=== PATIENT | male | born 1970 | race Caucasian/White ===

== ENCOUNTER 2024-12-06 18:19 | Inpatient (IN) | payer BC, SELFPAY ==
[2024-12-06] VITALS (12 sets, daily range): BP systolic 149–187; BP diastolic 87–111; PULSE 78–88; RESP 16; TEMP 36.4–37.9; O2SAT 93–100; BMI 30.3; BMI 30.4
--- NOTE | 2024-12-06 16:22 | PRE.ANES_ITS ---
ASA Classification* ASA Classification ASA Classification: 2 and E Assessment & Plan Anesthesia* Anesthesia Assessment Anesthesia Assessment: Discussed sedation and/or anesthesia options, risks, benefits, and alternatives with patient/parents/legal guardian/POA. Questions invited. The patient/parents/legal guardian/POA seems to understand and agrees to proceed with anesthesia plan. Reviewed the physical assessment, medical history, allergy history and patient home medications list prior to surgery/procedure/anesthetic and documented any changes. Performed airway and anesthesia risk assessments. Anesthesia Type Anesthesia Type: General History Source History Obtained from:: Patient and Chart Anesthesia Focused Assessment* Temperature: 99.9 F Pulse Rate: 88 Blood Pressure: 161/93 Respiratory Rate: 16 Pulse Ox: 100 Oxygen Delivery Method: Room Air Airway Assessment Mouth opens: >3 cm Mallampati Score: I Teeth Condition: Chipped/Broken (Patient has a few chipped teeth. Rest are tight.) Neck Range of motion (ROM): Limited ROM (Slight decrease in extension.) Focused Labs Anesthesia Preop lab: CBC CHEMISTRY COAG Pre-Assessment Diagnosis/Proposed Procedure Planned Operative Procedure(s): Right shoulder arthroscopy, irrigation and debridement. 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 When Was Last Pacemaker Check QUESTION #4 FULL TEXT: You/Your Family Experience fever (hyperthermia) with Anesthesia Last Oral Intake Last Oral intake: Last Oral Intake NPO since 12:00 12/06/24 15:56 Meds taken in AM with sips of Yes 12/06/24 15:56 water? Meds patient instructed to take am of surgery Any additional information?: Yes NPO since: 11:30 (Patient had food at 11:30 AM.) Meds taken in AM with sips of water?: Yes Meds patient instructed to take am of surgery: Patient took orphenadrine, alleve, and Toradol. PONV PONV - lunch counter manager: PONV - lunch counter manager Female No 12/06/24 16:00 HX of Motion Sickness No 12/06/24 16:00 HX of N/V After Surgery No 12/06/24 16:00 Non-Smoker Yes 12/06/24 16:00 Duration of Surgery greater Yes 12/06/24 16:00 than 60 minutes Number of Risk Factors 2 12/06/24 16:00 PONV Score Moderate Risk 12/06/24 16:00 Height & Weight Height & Weight: Anesthesia: Height & Weight Height 5 ft 6 in 12/06/24 15:56 Weight: 85.275 kg 12/06/24 15:56 Body Mass Index (BMI) 30.3 12/06/24 15:56 Respiratory Assessment Respiratory Assessment - lunch counter manager: Respiratory Tract Infection Hx - lunch counter manager Hx Respiratory Tract Infection No 12/06/24 16:00 STOP Sleep Apnea STOP Sleep Apnea - lunch counter manager: STOP Sleep Apnea - lunch counter manager Hx Hypertension No 12/06/24 16:00 Hx Sleep Apnea No 12/06/24 16:00 CPAP BIPAP Do you snore loudly (louder No 12/06/24 16:00 than talking or can be heard Do you often feel tired/ No 12/06/24 16:00 fatigued/ sleepy during daytime? Has anyone observed you stop No 12/06/24 16:00 breathing during sleep? STOP Results Negative 12/06/24 16:00 QUESTION #5 FULL TEXT : Do you snore loudly (louder than talking or can be heard through closed doors)? Tobacco Use History Tobacco Use History - lunch counter manager: Tobacco Use History - lunch counter manager Tobacco Use Smoking Status Never smoker 12/06/24 16:00 Hx Tobacco Use No 12/06/24 16:00 Years Smoking Packs Smoked per Day Smoking Cessation Date was within the last 15 years Hx Smoking Cessation Date Hx Smoking Cessation Counseling Hematologic Medial History Hematologic Hx - lunch counter manager: Hematologic Medical Hx - metal hanger Hx of Blood Transfusion No 12/06/24 16:00 Hx of Transfusion in last 3 No 12/06/24 16:00 Months Date of Last Transfusion (if within last 3 months) Ever experience any problems No 12/06/24 16:00 with transfusion(s)? Specify any problems Hx of Preganancy in last 3 N/A 12/06/24 16:00 Months Nurse Filling Out Transfusion NBUCHER 12/06/24 16:00 & Questions: Date: 12/06/24 12/06/24 16:00 Time: 16:00 12/06/24 16:00 Patient unable to answer at this time (ie. confused, unrespo /Reproduction History /Reproductive History - lunch counter manager: /Reproductive Hx- lunch counter manager Hx Now No 12/06/24 16:00 Gestational Age (in weeks): EDC: Hx Hx Para Hx Section SAB No 12/06/24 16:00 Active Medications Active Medications: Current Medications Generic Name Dose Route Start Last Admin Trade Name Freq PRN Reason Stop Dose Admin Sodium Chloride 1,000 mls @ 15 mls/hr 12/06/24 15:55 IV 12/12/24 05:14 [facility] Protocol PFSH Medical History Septic joint of right shoulder region Right shoulder pain Home Medications ?Medication ?Instructions ?Recorded ?Last Taken ?Type ketorolac 10 mg tablet 10 mg PO Q6 PRN pain 12/06/24 12/06/24 13:00 History methylprednisolone 4 mg tablets in mg PO 12/06/24 12/05/24 History a dose pack orphenadrine citrate 100 mg 100 mg PO BID 12/06/24 12/06/24 History tablet,extended release Allergy/AdvReac Type Severity Reaction Status Date / Time Penicillins AdvReac Other Verified 12/06/24 15:55 Family History Other Cancer Surgical History History of colonoscopy Social History Smoking Status: Never smoker alcohol intake: never Review of Systems (Anesthesia) ROS Narrative System reviewed and no additional complaints, except as documented.
--- NOTE | 2024-12-06 16:26 | PCM.HP.STD ---
HPI - General HPI Narrative JONATHAN SABA is a 54 M who presents for right shoulder arthroscopy, I and D for acute septic joint. no changes to health. pending bloodwook. RAB, post op discussed. Right shoulder marked, consent signed. OK to proceed. MR#: [id number] Acct: [id number] Name: JONATHAN SABA Rep #: [id number] : 1970 Provider: Dr. aFdy Farias MD Age/Sex: 54/M [place] [facility] [place] Status: Signed with Addenda ADDENDUM by Beatriz Casas on 12/06/24 at 1524 Office Procedure Documentation entered by Beatriz Casas 12/06/24 15:24: Office Injections/Aspirations Procedure Detail Procedure performed by: Fady Farias Ortho Injection Site: Yes Medication Given: Yes Ortho Injections/Aspirations Yes Subacromial Injection Right Details: Obtained consent for aspiration. Under sterile conditions, aspirated 20 cc of cloudy murky fluid from the patients right shoulder. The patient tolerated the aspiration well without any noted complications. Patient should call our office if redness develops, pain worsens or if they have any concerns. Date cc: ~* Signed Intake Vital Signs 12/06/2513:29 Height 5 ft 6 in Weight: 193 lb 4 oz BMI 31.1 Intake Visit Reasons: RIGHT SHOULDER Chief Complaint: Right Shoulder Pain Accompanied by: Is patient in pain?: Yes Pain scale (1-10): 10 Allergies Penicillins Adverse Reaction (Verified 12/06/24 14:31) Other Medications ?Medication ?Instructions ?Recorded ?Confirmed ?Type ketorolac 10 mg tablet 10 mg PO Q6 PRN 12/06/24 12/06/24 History methylprednisolone 4 mg tablets in mg PO 12/06/24 12/06/24 History a dose pack orphenadrine citrate 100 mg 100 mg PO BID PRN 12/06/24 12/06/24 History tablet,extended release PFSH Medical History (Updated 12/06/24 @ 15:07 by Fady Farias MD) Septic joint of right shoulder region Right shoulder pain Family History Other Cancer Social History Smoking Status: Never smoker alcohol intake: never HPI RIGHT SHOULDER Details: This documentation accurately reflects the service provided and the decisions made by me, Dr. Fady Farias MD 12/06/24 0470. Part of today?s visit was documented by [ ], acting as scribe. JONATHAN SABA is a 54 year old M here today for R shoulder pain. 8 years of shoulder pain. worse with lifting some fire wood recently. feels swollen and has tingling and numbness, hard to sleep. here with his . RHD. no prior operations. 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 no pop. had an MRI that showed a 'severed tendon' 5 years ago. 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 [place] - on prednisone. on 5mg yesterday and a muscle relaxant and toradol. in the ED in [place] on friday. Supplemental Info R shoulder xr 3 view - 12/05/24 on pacs moderate ACJ arthrosis, no GH OA, sclerosis at GT, nil acute. Coding Level of Care Code Attention Gastroenterology Nurse Diagnoses Right shoulder pain M25.511 Septic joint of right shoulder region M00.9 Comment 54866 and cpt aspirate major joint Assessment and Plan Assessment and Plan (1) Right shoulder pain: Status: Acute Plan: JONATHAN SABA is a 54 year old M here today for R shoulder pain. The pain has been getting worse and worse over the last 4 days with toxic appearing patient temperature 99 with red and warm and hot right shoulder with pain with any sort of micromotion I am extremely concerned here for spontaneous [place] septic joint of the right shoulder. I explained my concern to the patient and his . He has been having rigors as well and is extremely painful up to a 10 out of 10 with deep shoulder pain. The next step would be an acute aspiration of the shoulder I explained the pros and cons risk benefits of that and consented the patient for an urgent right shoulder aspiration. I did the aspiration and this revealed 20 cc of cloudy murky joint fluid that appears to be a bacterial infection. I sent this off for Gram stain culture and sensitivities protein glucose and cell counts stat. I asked the patient to go down to the emergency department acutely, he will need blood work, broad spec antibiotics, and STAT I and D surgical intervention. The patient has been n.p.o. a few sips of water last few hours but nothing to eat or drink since 11 AM this morning. Asked the patient to remain n.p.o. for a stat emergency right shoulder irrigation and debridement. He understands he urgency and necessity of the situation no further questions or concerns. Pros and cons risks and benefits of a right shoulder aspiration were discussed. Patient wished to proceed. Risks include but not limited to infection, pain, stiffness, damage to other structures, neurovascular injury, wear further tear of the tendon and other structures such as the skin, bleeding, allergic reaction, acute flare reaction and other risks. Obtained informed consent for injection. Anterior aspect of the shoulder anterior to the ACJ was prepped with chlorhexidine solution allowed to thoroughly dry over 3 minutes. Did pre procedure timeout. Used Gebauer spray per bottle instructions. Using sterile technique, injected 5cc 0.25% bupivacaine, gave it 5 minutes to set in. Aspirated 20cc murky fluid with a 18g needle. sent in multiple bottles. The patient tolerated the injection well without any noted complication. Bandage placed. (2) Septic joint of right shoulder region: Status: Acute Orders: Orders Shoulder min 2 Views Today M25.511 - Pain in right shoulder Culture, Body Fluid Today M25.511 - Pain in right shoulder Crystals, Body Fluid Today M25.511 - Pain in right shoulder Synovial Fluid RBC, WBC & Diff Today M25.511 - Pain in right shoulder GLUCOSE, SYNOVIAL FLUID Today M25.511 - Pain in right shoulder PROTEIN, SYNOVIAL FLUID Today M25.511 - Pain in right shoulder Gram Stain Today M25.511 - Pain in right shoulder Ortho Exam General General: No no acute distress (looks unwell, temp 99) and Yes distressed Neurologic: Yes alert Psychologic: Yes reasonable and appropriate Right Shoulder Skin/Wound: Yes CDI, Yes ecchymosis, Yes erythema and Yes swelling SHOULDER: Shoulder is quite warm no pain with range of motion of the elbow but any sort of even micromotion of the shoulder causes the patient extreme pain and duress. The shoulder is warm slightly red hand is swollen but neurovascularly intact median radial ulnar nerves as well as AIN/PIN hand is warm and well-perfused strong radial pulse but the hand is swollen slightly globally diminished sensation to the upper extremity. [facility] Medical History Septic joint of right shoulder region Right shoulder pain Home Medications ?Medication ?Instructions ?Recorded ?Last Taken ?Type ketorolac 10 mg tablet 10 mg PO Q6 PRN pain 12/06/24 12/05/24 13:00 History methylprednisolone 4 mg tablets in mg PO 12/06/24 12/05/24 History a dose pack orphenadrine citrate 100 mg 100 mg PO BID 12/06/24 12/05/24 History tablet,extended release Allergy/AdvReac Type Severity Reaction Status Date / Time Penicillins AdvReac Other Verified 12/06/24 15:55 Family History Other Cancer Surgical History (Updated 12/06/24 @ 16:01 by Mirela Maher) History of colonoscopy Social History (Updated 12/06/24 @ 14:33 by Veronica Marino) Smoking Status: Never smoker alcohol intake: never Vital Signs Vital Signs Vital Signs: 12/06/24 15:56 12/06/24 15:56 Temperature 99.9 F H Temperature Source Temporal Pulse Rate 88 Respiratory Rate 16 Respiratory Pattern Normal Blood Pressure 161/93 H Blood Pressure Mean 115 Blood Pressure Source Monitor Blood Pressure Position Semi-Fowlers Blood Pressure Location Left Arm Pulse Ox 100 Oxygen Delivery Method Room Air Weight Weight: 188 lb Body Mass Index (BMI) 30.3
[2024-12-06] MEDS: Epinephrine (1 mg/ml) 1 MG/ML VIAL (17:00)
--- NOTE | 2024-12-06 17:09 | PN.HOSP_ITS ---
Subjective Subjective Patient notes recent history of longstanding issues with his right shoulder with recommended surgical intervention but he deferred for many years but over the last week he started to have more significant pain to the right shoulder with debility, severe sharp stabbing and dull aching pain 10 out of 10 with low-grade temperatures prompting ED evaluation in [place] on Friday where he was started on steroids and muscle relaxants as well as Toradol but did not improve with referral to orthopedic surgery prompting evaluation on day of presentation in the office with Dr. Farias with right shoulder aspiration at that point with resulting labs concerning for septic joint prompting transition to the ED for planned operative intervention. Currently patient is prepping for transition to the OR and notes ongoing 10 out of 10 pain to the right shoulder at rest, worse with any activity and movement. He denies any recent specific trauma, abrasion or injury to the right shoulder. His last dose of steroids was the day prior. Patient denies chills, nausea, emesis, abdominal pain, chest pain or dyspnea. Objective Data Objective Data Vital Signs: Vital Signs Temp Pulse Resp BP Pulse Ox O2 Del Method 99.9 F H 88 16 161/93 H 100 Room Air 12/06/24 16:35 12/06/24 16:35 12/06/24 16:35 12/06/24 16:35 12/06/24 16:35 12/06/24 16:35 Oxygen Delivery Method Room Air Weight: 188 lb Body Mass Index (BMI) 30.3 Lab / Micro Data 12/06/24 16:40 12/06/24 16:40 Physical Exam Narrative Physical Examination: General: Awake, alert, oriented x 3 and cooperative, laying in the preop bed, uncomfortable appearing. Skin: Normal color, normal turgor, no icterus, no cyanosis with dressing in place over aspiration site to the right shoulder with no drainage. HEENT: AT/NC, EOMI, PERRLA, mildly dry MM. Lungs: CTA bilaterally, moderate effort, mild decrease BL bases, no rales, ronchi or wheezing. Heart: Regular rate and rhythm; no gallop, rub audible. Abdomen: Soft, NTTP, ND, normal BS. Extremities: No cyanosis, clubbing, or edema, significant discomfort with any attempt to move the right shoulder, peripheral pulses intact. Neurological: Patient awake, alert, oriented as noted cognitive function intact; pupils equally reactive to light and accommodation, cranial nerves gross normal, moving all 4 extremities although limited right upper extremity/shoulder movement given severity of pain, strength accordingly moderately to severely globally decreased. Psychiatric: Affect appears uncomfortable, no acute evidence of depressive or anxiety feelings. Assessment & Plan Assessment/Plan (1) Septic joint of right shoulder region: PLAN: Plan The patient is a 54 y/o M w/ PMHx: Chronic R shoulder debility/pain/OA, Obesity otherwise healthy who presents to the [facility] on 12/06/2024 for planned right shoulder operative debridement for concern for septic shoulder with history of worsening pain over the weekend and debility with follow-up with orthopedic surgery with aspiration performed and concern for septic joint. #1. Right shoulder septic joint with acute on chronic right shoulder debility/pain: Admitted per Dr. Farias, planned right shoulder arthroscopy with debridement and I&D, will await wound cultures, infectious disease consulted, discussed with orthopedic surgery and recommended IV vancomycin and IV cefepime x 1 in the OR and will continue these agents pending infectious disease evaluation and alteration of regimen per their discretion, post- operative pain management, bowel regimen, DVT Prophylaxis, PT/OT/CM per Orthopedic surgery discretion. #2. Elevated BP without hypertensive diagnosis: Significantly elevated BP, possibly related with pain, will continue to monitor and add regimen if appropriate, in the interim as needed IV hydralazine. #3. Obesity: Weight loss and lifestyle changes encouraged. #4. DVT prophylaxis: SCDs versus chemoprophylaxis per surgery discretion given recent OR. Charges/Coding Visit Charges Inpatient E&M: 95908 Subs Hosp L3
[2024-12-06 17:22] LABS: ALB/GLOB Ratio 0.8 RATIO (0.9-2.4); AST(SGOT) 14 U/L (15-37); Alanine Aminotransfer ALT/SGPT 22 U/L (16-61); Albumin, Serum 3.4 g/dL (3.2-5.0); Alkaline Phosphatase 69 U/L (45-117); Anion Gap 6 (5-15); BUN 14 mg/dL (7-18); BUN/Creat Ratio 13.1 RATIO (10-20); Calcium,Total 8.8 mg/dL (8.5-10.1); Chloride 104 mmol/L (98-107); Creatinine, Serum 1.07 mg/dL (0.70-1.30); EST Glomerular Filtration Rate 76 mL/min (>60); Est Glom Filt Rate - Afr Amer 92 mL/min (>60); Estimated Creatinine Clearance 79.87 ml/min; Globulin 4.4 g/dL (2.2-4.2); Glucose 106 mg/dL (74-106); Protein, Total 7.8 g/dL (6.4-8.2); Sodium Level 135 mmol/L (136-145)
[2024-12-06 17:27] LABS: Absolute Lymphocyte Count 1.06 X10^3/uL (0.83-4.51); Absolute Neutrophil Count 12.5 X10^3/uL (2.0-7.7); Basophil# 0.04 X10^3/uL; Basophil% 0.3 % (0-1); Eosinophil# 0.01 X10^3/uL; Eosinophils% 0.1 % (0-5); Erythrocyte Sedimentation Rate 48 mm/hr (0-20); Hemoglobin 14.1 g/dL (13.0-16.5); Lymphocyte # 1.06 X10^3/ul (0.83-4.51); Mean Corp Hgb Conc 33.6 g/dL (32-36); Mean Corpuscular Hgb 27.6 pg (27.0-32.0); Mean Corpuscular Volume 82.2 fL (80-94); Mean Platelet Vol. 11.1 fl (6.2-12.0); Monocyte# 1.48 X10^3/uL; Monocyte% 9.7 % (0-10); NRBC Flagged by Analyzer 0 % (0-5); Neutrophil # 12.53 X10^3/uL (2.7-7.7); Neutrophil % 82.4 % (47-70); Platelet Count 239 K/mm3 (150-450); RBC Distribution Width CV 13.6 % (11.6-14.6); RBC Distribution Width SD 40.7 fl (35.1-43.9); Red Blood Count 5.11 M/mm3 (4.6-6.2); White Blood Count 15.2 K/mm3 (4.4-11.0)
[2024-12-06] MEDS: Vancomycin HCl 2,000 MG in 0.9% Normal Saline (500mL Bag) 500 ML 250 MG IV (17:43)
[2024-12-06] MEDS: Cefepime HCl 2 GM in 0.9% Normal Saline (100mL MB+) 100 ML IV ×2 (17:43→22:57)
[2024-12-06] MEDS: Bupivacaine 0.25% 30 ML Vial (17:54)
[2024-12-06 17:55] LABS: Pathologist Comment May follow
--- NOTE | 2024-12-06 18:08 | OP.PCM_ITS ---
Problems Associated Problem List Diagnoses (1) Septic joint of right shoulder region: (2) Right shoulder pain: Procedures Musculoskeletal 20xxx-29xxx: Other Procedure See Report Operative Report (Standard) Operative Information Date of Procedure: 12/06/24 Pre-Operative Diagnosis: R septic shoulder joint Post-Operative Diagnosis: same Surgery/Procedure Performed: Right shoulder arthroscopy, extensive debridement, I and D film crew member: Erick Plate Conditioner: avtar Tasks completed by video production assistant: Retracting Type of Anesthesia: General RN Documented Start/Stop Times: Operation Date: 12/06/24 17:00 Case Time Into Pre-Op 12/06/24 15:51 Anesthesia Start 12/06/24 17:16 Into Room 12/06/24 17:16 Out of Pre-Op 12/06/24 17:17 Procedure Start 12/06/24 17:41 Procedure End 12/06/24 18:11 Into Recovery 12/06/24 18:17 Procedure Start Time: 17:41 Procedure Stop Time: 18:11 Select all DRAINS/GRAFTS/IMPLANTS that apply: None Estimated Blood Loss: 50 Specimen collected: No Description of surgery: Patient brought to the operating room theater. Administered general anesthetic. IV antibiotics administered cefepime and vancomycin. Patient transferred right side up lateral decubitus beanbag positioner axillary roll placed. All bony prominences padded. SCDs on the legs. Upper extremity prepped and draped in the usual sterile fashion with chlorhexidine-based prep solution allowing over 3 minutes drying time prior to draping. 10 pounds of inline traction with the arm in 40 degrees of abduction was used. Preoperative timeout performed from the site patient and the surgery. Began by inserting the arthroscope into the intra-articular portion of the shoulder through a standard posterior arthroscopy portal. Used a standard anterior arthroscopy portal inside out spinal needle localization just posterior to the biceps tendon. There was extensive synovitis and upon immediately putting in the scope into the shoulder there was murky joint fluid. I performed an extensive debridement throughout the shoulder rotator interval axillary recess as well as a subacromial bursa completely removed that. I also established a lateral based portal accessory portal for working as well. There is a large full-thickness rotator cuff tear with retraction to the level of the glenoid. I debrided any nonviable tissue. There is again extensive synovitis throughout the shoulder that I debrided. Biceps tendon was subluxed. There is some grade 2 changes of the cartilage on the humeral head and grade 1 changes on the glenoid. There is loose cartilage fragments which I debrided I thoroughly irrigated the joint using 6 L of normal saline. Arthroscopy pictures taken and saved throughout the case onto the system. Case terminated wound thoroughly irrigated. Portal sites closed with 3-0 Monocryl suture left open the anterior portal. Steri-Strips Adaptic as well as 5 cc of quarter percent bupivacaine was instilled in around the portal sites. ABD dressing cloth tape with a sling for the upper extremity was then placed. Patient woken up from the general anesthetic transferred off the operating table taken to postanesthetic care unit in stable condition. All sponge needle instrument counts were correct no complications Plan to the patient admitted to the hospital continue IV antibiotics I did call Dr. Andrade (infectious disease) at 4:30 PM stat but never got back to me ...I was able to consult with the hospitalist with regards to the choice of IV antibiotics. We will do broad-spectrum IV antibiotics until the cultures are back this can take 3 to 5 days as well as following the blood work CBC and CRP to monitor the response to the antibiotics. Daily dressing changes and will follow the patient while in hospital. cpt 15004 Surgical Findings: septic joint, infection and synovitis, bursitis Complications Complications: No Admit VTE Documentation VTE Present on Admission: No VTE Mechan Device Prophylaxis: SCD's VTE Pharm Prophylaxis ordered?: No Reason prophylaxis not ordered: Treatment Not Indicated
--- NOTE | 2024-12-06 18:19 | PCM.POST.ANE ---
Anesthesia: Postop Eval I Current Vital Signs Temperature: 99.2 F Pulse Rate: 88 Blood Pressure: 161/102 Respiratory Rate: 16 Pulse Ox: 96 Oxygen Delivery Method: Room Air Assessment Airway patent: Yes Spontaneous unlabored respirations: Yes Mental status: Awake and Calm nausea: No Vomiting: No Anesthesia Complication: No Fluid Hydration Crystalloid volume administer (ml): 1,000 Total IV fluid infused: 1,000 Progress Note Anesthesia document: Postop Eval 1 completed: Yes
--- NOTE | 2024-12-06 18:20 | POSTOPAN2_ITS ---
Anesthesia Postop Eval I Sum Postop Eval Completion status Anesthesia document: Postop Eval 1 completed: Yes Anesthesia Postop Eval I Summary Anesthesia Postop Eval I Summary: Anesthesia Postop Eval I: Assessment Summary Airway patent Yes 12/06/24 18:20 RN [email or web address] Spontaneous unlabored Yes 12/06/24 18:20 RN [email or web address].MDOT respirations Mental status Awake,Calm 12/06/24 18:20 RN [email or web address].MDOT nausea No 12/06/24 18:20 RN [email or web address].MDOT Vomiting No 12/06/24 18:20 RN [email or web address].MDOT Anesthesia Postop Eval I: Fluid Summary Crystalloid volume administer 1,000 12/06/24 18:20 RN [email or web address].MDOT (ml) Colloids volume administered ( ml) Blood Product volume administered (ml) Total IV fluid infused 1,000 12/06/24 18:20 RN [email or web address].MDOT Anesthesia Postop Eval I: Summary Notes Anesthesia Complication No 12/06/24 18:20 RN [email or web address].MDOT Anesthesia Complication Comment: Post-operative progress note Anesthesia: Postop Eval II Evaluation Mental status: Awake and Calm Pain Level: 3 nausea: No Vomiting: No Complications Anesthesia Complication: No
--- NOTE | 2024-12-06 18:20 | PCM.POSTANE2 ---
Anesthesia Postop Eval I Sum Postop Eval Completion status Anesthesia document: Postop Eval 1 completed: Yes Anesthesia Postop Eval I Summary Anesthesia Postop Eval I Summary: Anesthesia Postop Eval I: Assessment Summary Airway patent Yes 12/06/24 18:20 CHEMIST INORGANIC.MDOT Spontaneous unlabored Yes 12/06/24 18:20 CHEMIST INORGANIC.MDOT respirations Mental status Awake,Calm 12/06/24 18:20 CHEMIST INORGANIC.MDOT nausea No 12/06/24 18:20 CHEMIST INORGANIC.MDOT Vomiting No 12/06/24 18:20 CHEMIST INORGANIC.MDOT Anesthesia Postop Eval I: Fluid Summary Crystalloid volume administer 1,000 12/06/24 18:20 CHEMIST INORGANIC.MDOT (ml) Colloids volume administered ( ml) Blood Product volume administered (ml) Total IV fluid infused 1,000 12/06/24 18:20 CHEMIST INORGANIC.MDOT Anesthesia Postop Eval I: Summary Notes Anesthesia Complication No 12/06/24 18:20 CHEMIST INORGANIC.MDOT Anesthesia Complication Comment: Post-operative progress note Anesthesia: Postop Eval II Evaluation Mental status: Awake and Calm Pain Level: 3 nausea: No Vomiting: No Complications Anesthesia Complication: No
--- NOTE | 2024-12-06 20:56 | PHA.PHARE_ITS ---
Consult Antibiotic Management Pharmacy has been consulted to manage selected antibiotic: Vancomycin Type of Intervention Type of Consult: New start Suspected Infection Suspected Infection: Other (infected shoulder) Labs Labs: Sodium 135 mmol/L (136-145) L 12/06/24 16:40 Potassium 4.0 mmol/L (3.5-5.1) 12/06/24 16:40 Chloride 104 mmol/L (98-107) 12/06/24 16:40 Carbon Dioxide 25.0 mmol/L (21.0-32.0) 12/06/24 16:40 Anion Gap 6 (5-15) 12/06/24 16:40 BUN 14 mg/dL (7-18) 12/06/24 16:40 Creatinine 1.07 mg/dL (0.70-1.30) 12/06/24 16:40 Est GFR (MDRD) Af Amer 92 mL/min (>60) 12/06/24 16:40 Est GFR (MDRD) Non-Af 76 mL/min (>60) 12/06/24 16:40 BUN/Creatinine Ratio 13.1 RATIO (10-20) 12/06/24 16:40 Glucose 106 mg/dL (74-106) 12/06/24 16:40 Microbiology Microbiology: Microbiology 12/06/24 17:55 Aspirate - Shoulder Gram Stain - Preliminary Dosing Weight Weight used for dosin.4 kg Estimated Creatinine Clearance Estimated Creatinine Clearance: 80ml/min Goal Trough Goal Trough: 15-20 mcg/mL Pharmacy Plan for Drug Dosing Pharmacy Plan for Drug Dosing: NEW START IV VANCOMYCIN Consulting Physician: Dr. Carranza Indication: Infected shoulder Goal Trough: 15-20 SrCr: 1.07 CrCl: 80ml/min Comments: pt received a 2000mg loading dose on 12/06/24 at 1743 Vancomycin Dose: based on patients weight and renal function, recommend an i nitial dose of 1000mg q12h. Trough prior to the 4th total dose Note: dose was calculated using clinical pharmacology dosing calculator Pending Level: 12/08/24 at 0430 Pharmacy Service will continue to monitor and adjust dosing as required. Follow-Up Labs Follow-Up Labs: Trough: Vancomycin (12/08/24 at 0430)
[2024-12-06] MEDS: 0.9% Normal Saline (1000mL) 1,000 ML 999 ML IV (21:17)
[2024-12-06] MEDS: 0.9% Normal Saline (1000mL) 1,000 ML 15 ML IV (21:17)
[2024-12-06 21:20] LABS: AUTO B FLUID DILUENT BKGD CT WBC <0.1 RBC <0.01 (W<.1,R<.01); Source / Synovial Fluid R SHOULDER
[2024-12-06 21:21] LABS: Appearance /Synovial Fluid Turbid (CLEAR); Color / Synovial Fluid Yellow (Pale Yellow); Source- Body Fluid SYNOVIAL
[2024-12-06 21:22] LABS: RBC /Synovial Fluid 0.032 10^6/uL (0)
[2024-12-06 22:20] LABS: Neutrophil 92 % (0-25); Other Cell /Synovial Fluid 8 %; Viscosity / Synovial Fluid Liquid (HIGH)
[2024-12-06 22:25] LABS: CRYSTALS, BODY FLUID NO CRYSTALS SEEN
[2024-12-06] MEDS: oxyCODONE 5 MG Tablet PO (23:09)
[2024-12-06] MEDS: Acetaminophen 325 MG Tablet 650 MG PO (23:09)
[2024-12-07 00:43] VITALS: BP 139/87; PULSE 95; RESP 16; TEMP 37.4; O2SAT 94
[2024-12-07] MEDS: Vancomycin IV 1,000 MG/200 ML BAG 200 MG IV ×2 (05:01→16:23)
[2024-12-07 05:25] VITALS: BP 139/89; PULSE 79; RESP 16; TEMP 37.1; O2SAT 92
[2024-12-07 06:15] LABS: Absolute Lymphocyte Count 1.04 X10^3/uL (0.83-4.51); Absolute Neutrophil Count 10.7 X10^3/uL (2.0-7.7); Basophil# 0.03 X10^3/uL; Basophil% 0.2 % (0-1); Eosinophil# 0.02 X10^3/uL; Eosinophils% 0.2 % (0-5); Hematocrit 40.1 % (40-54); Hemoglobin 13.5 g/dL (13.0-16.5); Lymphocyte # 1.04 X10^3/ul (0.83-4.51); Lymphocyte % 7.9 % (19-41); Mean Corp Hgb Conc 33.7 g/dL (32-36); Mean Corpuscular Volume 83.2 fL (80-94); Mean Platelet Vol. 10.5 fl (6.2-12.0); Monocyte# 1.35 X10^3/uL; Monocyte% 10.2 % (0-10); NRBC Flagged by Analyzer 0 % (0-5); Neutrophil % 81.2 % (47-70); Platelet Count 208 K/mm3 (150-450); RBC Distribution Width SD 42.3 fl (35.1-43.9); Red Blood Count 4.82 M/mm3 (4.6-6.2); White Blood Count 13.2 K/mm3 (4.4-11.0)
[2024-12-07] MEDS: Cefepime HCl 2 GM in 0.9% Normal Saline (100mL MB+) 100 ML IV (06:18)
[2024-12-07 06:38] LABS: ALB/GLOB Ratio 0.7 RATIO (0.9-2.4); AST(SGOT) 18 U/L (15-37); Alanine Aminotransfer ALT/SGPT 19 U/L (16-61); Albumin, Serum 2.7 g/dL (3.2-5.0); Alkaline Phosphatase 56 U/L (45-117); Anion Gap 4 (5-15); BUN 11 mg/dL (7-18); BUN/Creat Ratio 11.1 RATIO (10-20); Calcium,Total 8.1 mg/dL (8.5-10.1); Chloride 105 mmol/L (98-107); Creatinine, Serum 0.99 mg/dL (0.70-1.30); EST Glomerular Filtration Rate 83 mL/min (>60); Est Glom Filt Rate - Afr Amer 101 mL/min (>60); Estimated Creatinine Clearance 86.38 ml/min; Globulin 3.8 g/dL (2.2-4.2); Glucose 137 mg/dL (74-106); Potassium 4.2 mmol/L (3.5-5.1); Protein, Total 6.5 g/dL (6.4-8.2); Sodium Level 133 mmol/L (136-145)
[2024-12-07] MEDS: oxyCODONE 5 MG Tablet PO ×4 (06:50→20:14)
--- NOTE | 2024-12-07 08:04 | PN.HOSP_ITS ---
Reason for Visit Reason for Visit: Diagnoses Pyogenic arthritis, unspecified (12/06/24) Pain in right shoulder (12/06/24) Subjective Subjective Patient feeling little bit better though still has pain in the shoulder, no other new or acute complaints Objective Data Objective Data Vital Signs: Vital Signs Temp Pulse Resp BP Pulse Ox O2 Del Method 98.7 F 79 16 139/89 H 92 Room Air 12/07/24 05:25 12/07/24 05:25 12/07/24 05:25 12/07/24 05:25 12/07/24 05:25 12/07/24 07:51 Oxygen Delivery Method Room Air Weight: 85.4 kg Body Mass Index (BMI) 30.4 Intake & Output: Intake and Output for Last 24 Hours 12/05/24 12/06/24 12/07/24 23:59 23:59 23:59 Intake Total 2039 450 / 450 Balance 2039 450 / 450 Lab / Micro Data 12/07/24 05:45 12/07/24 05:45 Labs: Laboratory Results - last 24 hr 12/06/24 16:40: WBC 15.2 H, RBC 5.11, Hgb 14.1, Hct 42.0, MCV 82.2, MCH 27.6, MCHC 33.6, RDW Std Deviation 40.7, RDW Coeff of Betzaida 13.6, Plt Count 239, MPV 11.1, Immature Gran % (Auto) 0.500, Neut % (Auto) 82.4 H, Lymph % (Auto) 7.0 L, [place] % (Auto) 9.7, Eos % (Auto) 0.1, Baso % (Auto) 0.3, Absolute Neuts (auto) 12.5 H, Absolute Lymphs (auto) 1.06, Nucleated RBC % 0, ESR 48 H, Sodium 135 L, Potassium 4.0, Chloride 104, Carbon Dioxide 25.0, Anion Gap 6, BUN 14, Creatinine 1.07, Estim Creat Clear Calc 79.87, Est GFR (MDRD) Af Amer 92, Est GFR (MDRD) Non-Af 76, BUN/Creatinine Ratio 13.1, Glucose 106, Calcium 8.8, Total Bilirubin 0.70, AST 14 L, ALT 22, Alkaline Phosphatase 69, C-React Prot Ext Range 177.00 H, Total Protein 7.8, Albumin 3.4, Globulin 4.4 H, Albumin/Globulin Ratio 0.8 L 12/06/24 17:55: Fluid Crystals NO CRYSTALS SEEN, Fluid Crystal Source SYNOVIAL, Fl Crystal Path Review Will follow, Synovial Source R SHOULDER, Synovial Color Yellow, Synovial Appearance Turbid, Synovial Viscosity Liquid, Synovial WBC 67.6800 H, Synovial RBC 0.032 H, Synovial Tot Cell Ct 68.1900 H, Synovial Neutrophils 92 H, Synovial Other Cells 8, Synovial Path Comment May follow 12/07/24 05:45: WBC 13.2 H, RBC 4.82, Hgb 13.5, Hct 40.1, MCV 83.2, MCH 28.0, MCHC 33.7, RDW Std Deviation 42.3, RDW Coeff of Betzaida 14.0, Plt Count 208, MPV 10.5, Immature Gran % (Auto) 0.300, Neut % (Auto) 81.2 H, Lymph % (Auto) 7.9 L, [place] % (Auto) 10.2 H, Eos % (Auto) 0.2, Baso % (Auto) 0.2, Absolute Neuts (auto) 10.7 H, Absolute Lymphs (auto) 1.04, Nucleated RBC % 0, Sodium 133 L, Potassium 4.2, Chloride 105, Carbon Dioxide 24.0, Anion Gap 4 L, BUN 11, Creatinine 0.99, Estim Creat Clear Calc 86.38, Est GFR (MDRD) Af Amer 101, Est GFR (MDRD) Non-Af 83, BUN/Creatinine Ratio 11.1, Glucose 137 H, Calcium 8.1 L, Total Bilirubin 0.90, AST 18, ALT 19, Alkaline Phosphatase 56, Total Protein 6.5, Albumin 2.7 L, Globulin 3.8, Albumin/Globulin Ratio 0.7 L Micro: Microbiology 12/06/24 17:55 Fluid - Synovial (joint) Gram Stain - Preliminary Physical Exam Narrative General: Alert, oriented, no apparent distress HEENT: Atraumatic, normocephalic Eyes: Anicteric, normal conjunctiva, extraocular movements grossly intact Neck: Supple Respiratory: Clear to auscultation bilaterally, normal respiratory effort Cardiovascular: Regular rate and rhythm GI: Soft, nontender, nondistended Extremities: No edema Musculoskeletal: 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 Farias -Synovial fluid analysis with elevated white blood cell count that was neutrophil predominant -Preliminary cultures growing Staph aureus -Patient on Rocephin and vancomycin -ID consult placed -Pain control -PT/OT #DVT ppx: SCDs Caryl Sanchez MD Charges/Coding Visit Charges Inpatient E&M: 77126 Subs Hosp L1
--- NOTE | 2024-12-07 09:25 | CASEMGMT ---
DELANEY BRYANT Assessment: Face to Face with pt for initial transition planning/care coordination assessment. RN ANNETTE introduced self and role at [facility], pt voices understanding and consents to assessment. Pt is A&O x4 and answers all questions appropriately at this time. Pt sitting up in bed in no distress. Care providers, pharmacy, and demographics verified/updated. Strata: 1 Admitting Dx: Septic Shoulder PCP: Emily Specialists: pj Farias Pharmacy: [facility] Insurance: [employer] Prescription Benefit: yes LNOK: , Esther Living Arrangements: Pt lives with in a 2 story home with 2 steps to enter. ADLs: I at baseline Transportation: Pt drives self and denies concerns with transportation. DME: Denies HHC/SNF: Denies Hx of Pt states no concerns with going home at time of dc. Pt states no further concerns/needs. CM to follow. Advised pt to ask CM if any further question/concerns/needs arise, voices understanding. Pt Goal: Home Plan: Home, follow ID Consult for DC needs. Eliane BALTAZAR CM
[2024-12-07 10:01] VITALS: BP 133/87; PULSE 97; RESP 16; TEMP 36.8; O2SAT 96
--- NOTE | 2024-12-07 10:29 | PCM.CONS.GEN ---
Assessment & Plan Assessment/Plan (1) Septic joint of right shoulder region: PLAN: Aspiration done, taken to OR 12/06/24 for I&D by Dr. Farias. Cxs pending. Will narrow to vanc/ceftriaxone. Will follow, thank you HPI Consult Data Date of Consult: 12/07/24 HPI Narrative Reason for Consultation: septic arthritis HPI Narrative: JONATHAN SABA, is a 54 M who presented 12/06 with 3 days progressive R shoulder pain. No known inciting event. Has some chronic shoulder issues. No recent infection/procedures. Had some mild warmth, fever, saw Dr. Farias, aspiration done, taken to OR 12/06/24 for I&D. Now on vanc/cefepime, pain is 5/10, feeling ok. Is R handed. Full ROS performed and neg except as noted above. [facility] Medical History Septic joint of right shoulder region Right shoulder pain Home Medications ?Medication ?Instructions ?Recorded ?Last Taken ?Type ketorolac 10 mg tablet 10 mg PO Q6 PRN pain 12/06/24 12/06/24 13:00 History methylprednisolone 4 mg tablets in mg PO 12/06/24 12/05/24 History a dose pack orphenadrine citrate 100 mg 100 mg PO BID 12/06/24 12/06/24 History tablet,extended release Allergy/AdvReac Type Severity Reaction Status Date / Time Penicillins AdvReac Other Verified 12/06/24 15:55 Family History (Updated 12/06/24 @ 19:[address] Juli Carranza MD) Mother Cancer CVA (cerebral vascular accident) Father Cancer Brain tumor Surgical History History of colonoscopy Social History (Updated 12/06/24 @ 19:[address] Juli Carranza MD) household members: spouse Smoking Status: Never smoker alcohol intake: never substance use type: does not use Physical Exam Const alert, oriented x3 and no apparent distress General Appearance: cooperative HEENT normocephalic and head/scalp atraumatic Eyes PERRL and EOMs intact bilaterally Neck supple and No nodes Resp normal air movement and clear to auscultation bilaterally Cardio regular rate and regular rhythm GI soft to palpation, non-tender and non-distended Extremity General Extremity: Negative for edema Skin Skin Narrative: R shoulder bandaged Neuro CN's II-XII intact bilaterally Lab / Micro Data Attestation: I reviewed the patient's lab results. 12/07/24 05:45 12/07/24 05:45 Labs: Laboratory Results - last 24 hr 12/06/24 16:40: WBC 15.2 H, RBC 5.11, Hgb 14.1, Hct 42.0, MCV 82.2, MCH 27.6, MCHC 33.6, RDW Std Deviation 40.7, RDW Coeff of Betzaida 13.6, Plt Count 239, MPV 11.1, Immature Gran % (Auto) 0.500, Neut % (Auto) 82.4 H, Lymph % (Auto) 7.0 L, [place] % (Auto) 9.7, Eos % (Auto) 0.1, Baso % (Auto) 0.3, Absolute Neuts (auto) 12.5 H, Absolute Lymphs (auto) 1.06, Nucleated RBC % 0, ESR 48 H, Sodium 135 L, Potassium 4.0, Chloride 104, Carbon Dioxide 25.0, Anion Gap 6, BUN 14, Creatinine 1.07, Estim Creat Clear Calc 79.87, Est GFR (MDRD) Af Amer 92, Est GFR (MDRD) Non-Af 76, BUN/Creatinine Ratio 13.1, Glucose 106, Calcium 8.8, Total Bilirubin 0.70, AST 14 L, ALT 22, Alkaline Phosphatase 69, C-React Prot Ext Range 177.00 H, Total Protein 7.8, Albumin 3.4, Globulin 4.4 H, Albumin/Globulin Ratio 0.8 L 12/06/24 17:55: Fluid Crystals NO CRYSTALS SEEN, Fluid Crystal Source SYNOVIAL, Fl Crystal Path Review Will follow, Synovial Source R SHOULDER, Synovial Color Yellow, Synovial Appearance Turbid, Synovial Viscosity Liquid, Synovial WBC 67.6800 H, Synovial RBC 0.032 H, Synovial Tot Cell Ct 68.1900 H, Synovial Neutrophils 92 H, Synovial Other Cells 8, Synovial Path Comment May follow 12/07/24 05:45: WBC 13.2 H, RBC 4.82, Hgb 13.5, Hct 40.1, MCV 83.2, MCH 28.0, MCHC 33.7, RDW Std Deviation 42.3, RDW Coeff of Betzaida 14.0, Plt Count 208, MPV 10.5, Immature Gran % (Auto) 0.300, Neut % (Auto) 81.2 H, Lymph % (Auto) 7.9 L, [place] % (Auto) 10.2 H, Eos % (Auto) 0.2, Baso % (Auto) 0.2, Absolute Neuts (auto) 10.7 H, Absolute Lymphs (auto) 1.04, Nucleated RBC % 0, Sodium 133 L, Potassium 4.2, Chloride 105, Carbon Dioxide 24.0, Anion Gap 4 L, BUN 11, Creatinine 0.99, Estim Creat Clear Calc 86.38, Est GFR (MDRD) Af Amer 101, Est GFR (MDRD) Non-Af 83, BUN/Creatinine Ratio 11.1, Glucose 137 H, Calcium 8.1 L, Total Bilirubin 0.90, AST 18, ALT 19, Alkaline Phosphatase 56, Total Protein 6.5, Albumin 2.7 L, Globulin 3.8, Albumin/Globulin Ratio 0.7 L Micro: Microbiology 12/06/24 17:55 Fluid - Synovial (joint) Gram Stain - Preliminary
[2024-12-07] MEDS: Acetaminophen 325 MG Tablet 650 MG PO ×3 (11:05→20:05)
[2024-12-07] MEDS: Ceftriaxone 2 GM in 0.9% Normal Saline (50mL MB+) 50 ML IV (11:09)
--- NOTE | 2024-12-07 12:11 | PCM.PN.ORT ---
Subjective Subjective Shoulder still a bit sore, no more fevers Objective Data Objective Data Vital Signs: Vital Signs Temp Pulse Resp BP Pulse Ox O2 Del Method 98.2 F 97 16 133/87 H 96 Room Air 12/07/24 10:01 12/07/24 10:01 12/07/24 10:01 12/07/24 10:01 12/07/24 10:12/07/24 10:01 Oxygen Delivery Method Room Air Weight: 188 lb 4.396 oz Body Mass Index (BMI) 30.4 Intake & Output: Intake and Output for Last 24 Hours 12/05/24 12/06/24 12/07/24 23:59 23:59 23:59 Intake Total 2039 550 / 550 Balance 2039 550 / 550 Lab / Micro Data Attestation: I reviewed the patient's lab results. 12/07/24 05:45 12/07/24 05:45 Labs: Laboratory Results - last 24 hr 12/06/24 16:40: WBC 15.2 H, RBC 5.11, Hgb 14.1, Hct 42.0, MCV 82.2, MCH 27.6, MCHC 33.6, RDW Std Deviation 40.7, RDW Coeff of Betzaida 13.6, Plt Count 239, MPV 11.1, Immature Gran % (Auto) 0.500, Neut % (Auto) 82.4 H, Lymph % (Auto) 7.0 L, [place] % (Auto) 9.7, Eos % (Auto) 0.1, Baso % (Auto) 0.3, Absolute Neuts (auto) 12.5 H, Absolute Lymphs (auto) 1.06, Nucleated RBC % 0, ESR 48 H, Sodium 135 L, Potassium 4.0, Chloride 104, Carbon Dioxide 25.0, Anion Gap 6, BUN 14, Creatinine 1.07, Estim Creat Clear Calc 79.87, Est GFR (MDRD) Af Amer 92, Est GFR (MDRD) Non-Af 76, BUN/Creatinine Ratio 13.1, Glucose 106, Calcium 8.8, Total Bilirubin 0.70, AST 14 L, ALT 22, Alkaline Phosphatase 69, C-React Prot Ext Range 177.00 H, Total Protein 7.8, Albumin 3.4, Globulin 4.4 H, Albumin/Globulin Ratio 0.8 L 12/06/24 17:55: Fluid Crystals NO CRYSTALS SEEN, Fluid Crystal Source SYNOVIAL, Fl Crystal Path Review Will follow, Synovial Source R SHOULDER, Synovial Color Yellow, Synovial Appearance Turbid, Synovial Viscosity Liquid, Synovial WBC 67.6800 H, Synovial RBC 0.032 H, Synovial Tot Cell Ct 68.1900 H, Synovial Neutrophils 92 H, Synovial Other Cells 8, Synovial Path Comment May follow 12/07/24 05:45: WBC 13.2 H, RBC 4.82, Hgb 13.5, Hct 40.1, MCV 83.2, MCH 28.0, MCHC 33.7, RDW Std Deviation 42.3, RDW Coeff of Betzaida 14.0, Plt Count 208, MPV 10.5, Immature Gran % (Auto) 0.300, Neut % (Auto) 81.2 H, Lymph % (Auto) 7.9 L, [place] % (Auto) 10.2 H, Eos % (Auto) 0.2, Baso % (Auto) 0.2, Absolute Neuts (auto) 10.7 H, Absolute Lymphs (auto) 1.04, Nucleated RBC % 0, Sodium 133 L, Potassium 4.2, Chloride 105, Carbon Dioxide 24.0, Anion Gap 4 L, BUN 11, Creatinine 0.99, Estim Creat Clear Calc 86.38, Est GFR (MDRD) Af Amer 101, Est GFR (MDRD) Non-Af 83, BUN/Creatinine Ratio 11.1, Glucose 137 H, Calcium 8.1 L, Total Bilirubin 0.90, AST 18, ALT 19, Alkaline Phosphatase 56, Total Protein 6.5, Albumin 2.7 L, Globulin 3.8, Albumin/Globulin Ratio 0.7 L Micro: Microbiology 12/06/24 17:55 Fluid - Synovial (joint) Gram Stain - Preliminary 12/06/24 17:55 Fluid - Synovial (joint) Body Fluid Culture - Preliminary Staphylococcus aureus Physical Exam Const alert, oriented x3 and no apparent distress Constitutional Narrative: looks well. alert. Extremity normal capillary refill Extremity Narrative: swollen shoulder, portals dry, nvi mru and ain/pin, hand warm well perfused, strong rad pulse. Assessment & Plan Assessment/Plan (1) Septic joint of right shoulder region: PLAN: 54 yr M pod 1 right shoulder scope I and D for septic joint. Synovial fluid >50k. Doing well. Changed dressing. AAT. Will follow - thank you ID and hospitalist for managing antibiotics. (2) Right shoulder pain:
[2024-12-07 13:51] LABS: Pathologist Review Reviewed
[2024-12-07 15:00] VITALS: BP 148/98; PULSE 75; RESP 15; TEMP 36.6; O2SAT 99
[2024-12-07 19:57] VITALS: BP 139/84; PULSE 87; RESP 16; TEMP 37.4; O2SAT 96
[2024-12-08] VITALS (9 sets, daily range): BP systolic 150–162; BP diastolic 84–105; PULSE 75–98; RESP 15–18; TEMP 36.3–38.2; O2SAT 96–100
[2024-12-08] MEDS: oxyCODONE 5 MG Tablet PO ×5 (01:38→17:42)
[2024-12-08] MEDS: Acetaminophen 325 MG Tablet 650 MG PO ×4 (01:39→22:54)
[2024-12-08 04:43] LABS: Absolute Lymphocyte Count 1.06 X10^3/uL (0.83-4.51); Basophil# 0.05 X10^3/uL; Basophil% 0.4 % (0-1); Eosinophil# 0.12 X10^3/uL; Eosinophils% 1.1 % (0-5); Hematocrit 40.6 % (40-54); Hemoglobin 13.7 g/dL (13.0-16.5); Lymphocyte # 1.06 X10^3/ul (0.83-4.51); Lymphocyte % 9.3 % (19-41); Mean Corp Hgb Conc 33.7 g/dL (32-36); Mean Corpuscular Hgb 27.8 pg (27.0-32.0); Mean Corpuscular Volume 82.4 fL (80-94); Mean Platelet Vol. 10.1 fl (6.2-12.0); Monocyte# 1.14 X10^3/uL; NRBC Flagged by Analyzer 0 % (0-5); Neutrophil # 8.97 X10^3/uL (2.7-7.7); Neutrophil % 78.8 % (47-70); Platelet Count 243 K/mm3 (150-450); RBC Distribution Width SD 41.7 fl (35.1-43.9); Red Blood Count 4.93 M/mm3 (4.6-6.2); White Blood Count 11.4 K/mm3 (4.4-11.0)
[2024-12-08 05:03] LABS: Vancomycin, Trough Level 6.7 ug/mL (5.0-15.0)
[2024-12-08 05:05] LABS: Anion Gap 5 (5-15); BUN 11 mg/dL (7-18); BUN/Creat Ratio 11.9 RATIO (10-20); Calcium,Total 8.3 mg/dL (8.5-10.1); Chloride 104 mmol/L (98-107); Creatinine, Serum 0.93 mg/dL (0.70-1.30); EST Glomerular Filtration Rate 90 mL/min (>60); Est Glom Filt Rate - Afr Amer 109 mL/min (>60); Estimated Creatinine Clearance 91.96 ml/min; Glucose 123 mg/dL (74-106); Potassium 3.8 mmol/L (3.5-5.1); Sodium Level 134 mmol/L (136-145)
--- NOTE | 2024-12-08 05:17 | PCM.RX.CS ---
Consult Antibiotic Management Pharmacy has been consulted to manage selected antibiotic: Vancomycin Type of Intervention Type of Consult: Follow-up Labs Labs: Sodium 134 mmol/L (136-145) L 12/08/24 04:27 Potassium 3.8 mmol/L (3.5-5.1) 12/08/24 04:27 Chloride 104 mmol/L (98-107) 12/08/24 04:27 Carbon Dioxide 25.0 mmol/L (21.0-32.0) 12/08/24 04:27 Anion Gap 5 (5-15) 12/08/24 04:27 BUN 11 mg/dL (7-18) 12/08/24 04:27 Creatinine 0.93 mg/dL (0.70-1.30) 12/08/24 04:27 Est GFR (MDRD) Af Amer 109 mL/min (>60) 12/08/24 04:27 Est GFR (MDRD) Non-Af 90 mL/min (>60) 12/08/24 04:27 BUN/Creatinine Ratio 11.9 RATIO (10-20) 12/08/24 04:27 Glucose 123 mg/dL (74-106) H 12/08/24 04:27 Vancomycin Trough 6.7 ug/mL (5.0-15.0) 12/08/24 04:27 Microbiology Microbiology: Microbiology 12/06/24 17:55 Fluid - Synovial (joint) Gram Stain - Final 12/06/24 17:55 Fluid - Synovial (joint) Body Fluid Culture - Preliminary Staphylococcus aureus Dosing Weight Weight used for dosin.4 kg Estimated Creatinine Clearance Estimated Creatinine Clearance: 92 Goal Trough Goal Trough: 15-20 mcg/mL Pharmacy Plan for Drug Dosing Pharmacy Plan for Drug Dosing: Vancomycin trough level of 6.7, drawn 12hrs post-dose, was below the target range of 15-20. Will increase dosing to 1750mg q12h, and will draw another trough level prior to fourth dose of the new regimen. Pharmacy Service will continue to monitor and adjust dosing as required. Follow-Up Labs Follow-Up Labs: Trough: Vancomycin Date/Time Labs Ordered Labs to be done on [date and time ordered]: 12/09/24 @1700
[2024-12-08] MEDS: Vancomycin HCl 1,750 MG in 0.9% Normal Saline (500mL Bag) 500 ML 250 MG IV (05:23)
--- NOTE | 2024-12-08 07:41 | PN.HOSP_ITS ---
Reason for Visit Reason for Visit: Diagnoses Pyogenic arthritis, unspecified (12/06/24) Pain in right shoulder (12/06/24) Subjective Subjective Patient has been having increased pain today so pain medication adjusted per primary. Objective Data Objective Data Vital Signs: Vital Signs Temp Pulse Resp BP Pulse Ox O2 Del Method 98.4 F 75 16 152/94 H 97 Room Air 12/08/24 05:26 12/08/24 05:26 12/08/24 05:26 12/08/24 05:26 12/08/24 05:26 12/08/24 05:26 Oxygen Delivery Method Room Air Weight: 85.4 kg Body Mass Index (BMI) 30.4 Intake & Output: Intake and Output for Last 24 Hours 12/06/24 12/07/24 12/08/24 23:59 23:59 23:59 Intake Total 2039 1200 / 1200 400 / 400 Balance 2039 1200 / 1200 400 / 400 Lab / Micro Data 12/08/24 04:27 12/08/24 04:27 Labs: Laboratory Results - last 24 hr 12/06/24 17:55: Fl Crystal Path Review Reviewed 12/08/24 04:27: WBC 11.4 H, RBC 4.93, Hgb 13.7, Hct 40.6, MCV 82.4, MCH 27.8, MCHC 33.7, RDW Std Deviation 41.7, RDW Coeff of Betzaida 14.0, Plt Count 243, MPV 10.1, Immature Gran % (Auto) 0.400, Neut % (Auto) 78.8 H, Lymph % (Auto) 9.3 L, [place] % (Auto) 10.0, Eos % (Auto) 1.1, Baso % (Auto) 0.4, Absolute Neuts (auto) 9.0 H, Absolute Lymphs (auto) 1.06, Nucleated RBC % 0, Sodium 134 L, Potassium 3.8, Chloride 104, Carbon Dioxide 25.0, Anion Gap 5, BUN 11, Creatinine 0.93, Estim Creat Clear Calc 91.96, Est GFR (MDRD) Af Amer 109, Est GFR (MDRD) Non-Af 90, BUN/Creatinine Ratio 11.9, Glucose 123 H, Calcium 8.3 L, Vancomycin Trough 6.7 Micro: Microbiology 12/06/24 17:55 Fluid - Synovial (joint) Gram Stain - Final 12/06/24 17:55 Fluid - Synovial (joint) Body Fluid Culture - Preliminary Staphylococcus aureus Assessment & Plan Assessment/Plan (1) Right shoulder pain: PLAN: Plan #Septic joint of right shoulder 2/2 staph aureus -Patient with elevated white blood cell count and CRP of 177 and shoulder worsened over 4 days and was red and hot with pain with any movement -Status post washout 12/06/[address] Farias -Synovial fluid analysis with elevated white blood cell count that was neutrophil predominant -Preliminary cultures growing Staph aureus -Patient on Rocephin and vancomycin -ID consult placed -Pain control -PT/OT -12/08: Patient growing Staph aureus, sensitivities available. Patient narrowed to cefazolin and midline ordered by ID with cefazolin stop date 12/20/2024 and then outpatient he will have an additional 1 to 2 weeks of p.o. antibiotics. Will need to follow-up with infectious disease in 2 weeks. Patient now with blood culture positive preliminarily for gram-positive cocci in clusters. Could be coag negative staph/contaminant or could be Staph aureus. Will put in for repeat blood cultures and continue cefazolin. ID following. If it is Staph aureus may need echocardiogram. #DVT ppx: SCDs Caryl Sanchez MD Charges/Coding Visit Charges Inpatient E&M: 10163 Subs Hosp L1
[2024-12-08] MEDS: Ceftriaxone 2 GM in 0.9% Normal Saline (50mL MB+) 50 ML IV (08:50)
--- NOTE | 2024-12-08 13:13 | NURSING ---
talked with radiology interventional physician, dynamic access consulted for midline placement, notified
--- NOTE | 2024-12-08 13:40 | CASEMGMT ---
Addendum entered by Christine Fournier 12/08/24 16:01: Pt accepted by [facility]. RN CM to f/u tomorrow after ortho sees pt. Addendum entered by Christine Fournier 12/08/24 15:01: [facility] has declined pt. Referral sent to [facility] and [facility] at this time. Addendum entered by Christine Fournier 12/08/24 14:32: RN ANNETTE into pt room, provided HH list created by dc medical laboratory assistant. Pt chose 1. [facility] 2. [facility] 3. [facility]. Referral sent to [facility]. Original Note: RN CM into pt room to discuss IV atb that are ordered at mi. Pt states that it is difficult for him to move his arm. He will not be able to perform own IV. He states he has a dtr that is a [employer] and one that is a RN. He states his also may be able to learn. Pt is homebound, he is aware that this RN CM will bring in a list of EXECUTIVE [employer]ER as well. Provided pt with a verbal local list of infusion companies, pt chose [facility]. Requested dc medical laboratory assistant start referral.
--- NOTE | 2024-12-08 14:04 | PCM.PN.ID ---
Physical Exam Narrative No fever, no n/v/d, shoulder is sore. Const alert and no apparent distress General Appearance: cooperative Resp normal air movement and clear to auscultation bilaterally Cardio regular rate and regular rhythm GI soft to palpation, non-tender and non-distended Skin Skin Narrative: some R shoulder redness ID ID: Route of nutrition/ use of supplements: [] Nutritional Intake: [] IV Site: [] Phan Catheter: [] Assessment & Plan Assessment/Plan (1) Septic joint of right shoulder region: PLAN: Aspiration done, taken to OR 12/06/24 for I&D by Dr. Farias. Cxs MSSA. Will narrow to cefazolin, order midline for 2 week course (stop date 12/20/24) then planned 1-2 weeks po abx. Wrote rx, d/w social work. ID followup in 2 weeks. Will follow
--- NOTE | 2024-12-08 14:11 | CASEMGMT ---
Discharge Planning A list of?HH providers including quality and resource use data and consistent with the patient's preferred geographic region, medical needs, and insurance network was created in [facility].? This list was provided to the RN ANNETTE. Shantell Rebolledo, Discharge Planning Asst.
[2024-12-08] MEDS: Cefazolin 2 GM in Syringe IV ×2 (14:40→20:51)
[2024-12-08] MEDS: HYDROmorphone Inj 0.2 MG/ML SYRINGE IV ×2 (14:41→21:12)
[2024-12-08] MEDS: 0.9% Saline Lock 10 ML Syringe IV ×3 (14:41→21:14)
--- NOTE | 2024-12-08 16:40 | NURSING ---
PAIN NOT VERY WELL CONTROLLED TODAY, TRIED DILAUDID THIS AFTERNOON AND GAVE LITTLE RELIEF FOR A SHORT TIME. TEMP 100.7. COMMUNICATION SENT TO DR KIDD
--- NOTE | 2024-12-08 17:05 | NURSING ---
NOTIFIED DR HOPKINS PER DR KIDD REQUEST. NEW ORDER TO INCREASE PAIN MED.
--- NOTE | 2024-12-08 17:29 | NURSING ---
DR KIDD AND DR CORRAL NOTIFIED VIA TEXT, (+) BLOOD CULTURES. AEROBIC, GRAM (+) COCCI IN CLUSTERS
[2024-12-08] MEDS: hydrALAZINE 20 MG/ML Vial 10 MG IV (20:47)
[2024-12-09] VITALS (9 sets, daily range): BP systolic 149–190; BP diastolic 76–102; PULSE 79–94; RESP 16–18; TEMP 36.3–37.2; O2SAT 93–98
[2024-12-09] MEDS: oxyCODONE 5 MG Tablet PO ×5 (00:48→21:42)
[2024-12-09] MEDS: 0.9% Saline Lock 10 ML Syringe IV ×4 (05:12→21:43)
[2024-12-09] MEDS: Acetaminophen 325 MG Tablet 650 MG PO ×3 (05:13→17:19)
[2024-12-09] MEDS: Cefazolin 2 GM in Syringe IV ×3 (05:13→21:43)
[2024-12-09] MEDS: hydrALAZINE 20 MG/ML Vial 10 MG IV (06:17)
[2024-12-09 06:43] LABS: Absolute Lymphocyte Count 1.09 X10^3/uL (0.83-4.51); Absolute Neutrophil Count 8.1 X10^3/uL (2.0-7.7); Basophil# 0.04 X10^3/uL; Basophil% 0.4 % (0-1); Eosinophil# 0.13 X10^3/uL; Eosinophils% 1.2 % (0-5); Hematocrit 39.9 % (40-54); Hemoglobin 13.4 g/dL (13.0-16.5); Lymphocyte # 1.09 X10^3/ul (0.83-4.51); Lymphocyte % 10.4 % (19-41); Mean Corp Hgb Conc 33.6 g/dL (32-36); Mean Corpuscular Hgb 27.3 pg (27.0-32.0); Mean Corpuscular Volume 81.4 fL (80-94); Mean Platelet Vol. 10.9 fl (6.2-12.0); Monocyte# 1.13 X10^3/uL; Monocyte% 10.7 % (0-10); NRBC Flagged by Analyzer 0 % (0-5); Neutrophil # 8.09 X10^3/uL (2.7-7.7); Neutrophil % 76.9 % (47-70); Platelet Count 299 K/mm3 (150-450); RBC Distribution Width CV 14.1 % (11.6-14.6); RBC Distribution Width SD 41.1 fl (35.1-43.9); White Blood Count 10.5 K/mm3 (4.4-11.0)
[2024-12-09 07:30] LABS: Anion Gap 6 (5-15); BUN 11 mg/dL (7-18); BUN/Creat Ratio 11.6 RATIO (10-20); Calcium,Total 8.6 mg/dL (8.5-10.1); Chloride 101 mmol/L (98-107); Creatinine, Serum 0.95 mg/dL (0.70-1.30); EST Glomerular Filtration Rate 88 mL/min (>60); Est Glom Filt Rate - Afr Amer 106 mL/min (>60); Estimated Creatinine Clearance 90.02 ml/min; Glucose 122 mg/dL (74-106); Potassium 3.7 mmol/L (3.5-5.1); Sodium Level 132 mmol/L (136-145)
[2024-12-09 08:10] LABS: GLUCOSE, SYNOVIAL FLUID 22 mg/dL (.); PROTEIN, SYNOVIAL FLUID 11.5 g/dL (.)
--- NOTE | 2024-12-09 08:11 | ECHOD_ITS ---
Reason For Study: OTHER Procedure This was a 2D Doppler, Color Flow transthoracic echocardiogram. Exam performed portable in patient room. Left Ventricle Normal LV size. The estimated ejection fraction is 55 %. No evidence for diastolic dysfunction. No regional wall motion abnormalities noted. Right Ventricle Normal RV size. Normal systolic function. Atria The left and right atria are normal. No doppler evidence for ASD. Mitral Valve There is no mitral valve stenosis. Trivial mitral valve insufficiency. Tricuspid Valve There is no tricuspid stenosis. Unable to estimate RV systolic pressure due to inadequate jet, pulmonary artery pressure probably normal. Aortic Valve Trisinus/trileaflet aortic valve. There is no aortic stenosis. No aortic valve insufficiency. Pulmonic Valve There is no pulmonic valvular stenosis. No pulmonic valve insufficiency. Great Vessels Normal aortic root. Pericardium/Pleural No pericardial effusion. MMode/2D Measurements & Calculations LVIDd: 4.7 cm IVSd: 1.1 cm LVOT diam: 2.0 cm LVIDs: 3.8 cm LVPWd: 1.4 cm LVOT area: 3.1 cm2 FS: 20.8 % Ao root diam: 3.8 cm LAV(MOD-sp2): 41.0 ml LVAd ap4: 27.1 cm2 LVLd ap4: 8.5 cm EDV(MOD-sp4): 77.5 ml EDV(sp4-el): 74.0 ml LVAs ap4: 16.1 cm2 LVLs ap4: 7.2 cm ESV(MOD-sp4): 31.5 ml ESV(sp4-el): 30.4 ml EF(MOD-sp4): 59.3 % EF(sp4-el): 58.9 % SV(MOD-sp4): 45.9 ml SV(sp4-el): 43.5 ml LA A4 area: 11.9 cm2 SI(MOD-sp4): 26.6 ml/m2 LA dimension(2D): 3.0 cm RA A4 area: 8.4 cm2 Time Measurements MV dec time: 0.23 sec Doppler Measurements & Calculations MV E max grey: 85.2 cm/sec Lat Peak E' Grey: 15.1 cm/sec Med Peak E' Grey: 8.5 cm/sec MV A max grey: 110.4 cm/sec E/E' lat: 5.6 E/E' med: 10.1 MV E/A: 0.77 MV V2 max: 119.6 cm/sec Ao V2 max: 139.1 cm/sec MV max P.7 mmHg MV dec slope: 377.4 cm/sec2 Ao max P.7 mmHg MV V2 mean: 75.1 cm/sec Ao V2 mean: 91.8 cm/sec MV mean P.7 mmHg Ao mean P.9 mmHg MV V2 VTI: 31.3 cm Ao V2 VTI: 25.5 cm AV (velocity ratio): 0.92 MVA(VTI): 2.3 cm2 JOSE(I,D): 2.9 cm2 JOSE(V,D): 3.0 cm2 LV V1 max: 133.0 cm/sec SV(LVOT): 72.9 ml PA V2 max: 100.9 cm/sec LV V1 max P.1 mmHg PA V2 mean: 59.5 cm/sec LV V1 mean P.6 mmHg LV V1 mean: 86.8 cm/sec LV V1 VTI: 23.4 cm ECHO/Echo Complete Interpretation Summary The estimated ejection fraction is 55 %. No evidence for diastolic dysfunction. Trivial mitral valve insufficiency. Ordering Physician: Caryl Sanchez Referring Physician: Fady Farias Performed By: Kassandra Bueno RCS
--- NOTE | 2024-12-09 09:41 | CASEMGMT ---
Addendum entered by Christine Fournier 12/09/24 14:24: Updated [facility] and [facility] that pt will not dc this date. Addendum entered by Christine Fournier 12/09/24 11:10: RN ANNETTE made pt and aware that [facility] has accepted for care. Also the cost for IV medications. Pt now to have echo. DELANEY BRYANT to continue to follow. Original Note: Rounded with hospitalist, will await ID to verify pt is ok to dc and ortho. Updated [facility] and [facility] on this plan and sent midline insertion info to both agencies.
--- NOTE | 2024-12-09 10:31 | PCM.PN.ID ---
Physical Exam Const alert and no apparent distress General Appearance: cooperative Resp normal air movement and clear to auscultation bilaterally Cardio regular rate and regular rhythm GI soft to palpation, non-tender and non-distended Skin Skin Narrative: R shoulder redness, swelling, warmth. No splinter hemorrhages on fingers. ID ID: Route of nutrition/ use of supplements: [] Nutritional Intake: [] IV Site: [] Phan Catheter: [] Assessment & Plan Assessment/Plan (1) Septic joint of right shoulder region: PLAN: Complicated by MSSA bacteremia. Aspiration done, taken to OR 12/06/24 for I&D by Dr. Farias. Cxs MSSA. Cont cefazolin. Repeat bcx pending, will check echo. D/w Dr. Farias who will re-eval, some ongoing inflammation in shoulder. Wbc improved. Will follow (2) MSSA bacteremia:
--- NOTE | 2024-12-09 12:08 | PCM.PN.ORT ---
Subjective Subjective still painful shoulder but settling Objective Data Objective Data Vital Signs: Vital Signs Temp Pulse Resp BP Pulse Ox O2 Del Method 98.9 F 88 18 158/96 H 97 Room Air 12/09/24 08:12 12/09/24 08:12 12/09/24 08:12 12/09/24 08:12 12/09/24 08:12 12/09/24 08:12 Oxygen Delivery Method Room Air Weight: 188 lb 4.396 oz Body Mass Index (BMI) 30.4 Intake & Output: Intake and Output for Last 24 Hours 12/07/24 12/08/24 12/09/24 23:59 23:59 23:59 Intake Total 1200 / 1200 1025 / 1025 Balance 1200 / 1200 1025 / 1025 Lab / Micro Data Attestation: I reviewed the patient's lab results. 12/09/24 05:36 12/09/24 05:36 Labs: Laboratory Results - last 24 hr 12/06/24 17:55: Synovial Glucose 22 12/09/24 05:36: WBC 10.5, RBC 4.90, Hgb 13.4, Hct 39.9 L, MCV 81.4, MCH 27.3, MCHC 33.6, RDW Std Deviation 41.1, RDW Coeff of Betzaida 14.1, Plt Count 299, MPV 10.9, Immature Gran % (Auto) 0.400, Neut % (Auto) 76.9 H, Lymph % (Auto) 10.4 L, [place] % (Auto) 10.7 H, Eos % (Auto) 1.2, Baso % (Auto) 0.4, Absolute Neuts (auto) 8.1 H, Absolute Lymphs (auto) 1.09, Nucleated RBC % 0, Sodium 132 L, Potassium 3.7, Chloride 101, Carbon Dioxide 26.0, Anion Gap 6, BUN 11, Creatinine 0.95, Estim Creat Clear Calc 90.02, Est GFR (MDRD) Af Amer 106, Est GFR (MDRD) Non-Af 88, BUN/Creatinine Ratio 11.6, Glucose 122 H, Calcium 8.6 Micro: Microbiology 12/06/24 18:46 Blood Culture (Wb) - Anticubital Left Bacteria Detection (PCR) - Final Staphylococcus aureus 12/06/24 18:46 Blood Culture (Wb) - Anticubital Left Blood Culture - Preliminary Staphylococcus aureus 12/06/24 17:55 Fluid - Synovial (joint) Gram Stain - Final 12/06/24 17:55 Fluid - Synovial (joint) Body Fluid Culture - Final Staphylococcus aureus Physical Exam Narrative appears better, comfortable, up to chair, less toxic appearing Const alert Extremity Extremity Narrative: increased surrounding redness spreading to the chest wall today, but much less swelling than initial assessment and much less than POD 1. pain with light touch to the red area, less pain with motion of the shoulder. Assessment & Plan Assessment/Plan (1) Septic joint of right shoulder region: PLAN: POD 3 right shoulder I and D for septic joint. At this point the infection appears to be more so in the soft tissues and skin - a cellulitis, and not a recurrent septic joint or a surgical problem. 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 Will continue to follow. Echo results pending. JAMIE and AAT, and nursing will apply polar care for pain and swelling control. (2) MSSA bacteremia: (3) Right shoulder pain: (4) Cellulitis:
[2024-12-09] MEDS: Senna/Docusate Sodium 1 Tablet 2 TABLET PO (13:12)
--- NOTE | 2024-12-09 15:01 | NURSING ---
declines prn med for BP
--- NOTE | 2024-12-09 15:35 | PCM.PN.HOSP ---
Reason for Visit Reason for Visit: Diagnoses Methicillin susceptible Staphylococcus aureus infection as the cause of diseases classified elsewhere (12/06/24) Cellulitis, unspecified (12/06/24) Pyogenic arthritis, unspecified (12/06/24) Pain in right shoulder (12/06/24) Bacteremia (12/06/24) Subjective Subjective Pt still having some pain but does feel like it is slightly better than yesterday. He denies any other new or acute complaints Objective Data Objective Data Vital Signs: Vital Signs Temp Pulse Resp BP Pulse Ox O2 Del Method 98.7 F 94 18 167/102 H 96 Room Air 12/09/24 14:36 12/09/24 14:36 12/09/24 14:36 12/09/24 14:36 12/09/24 14:36 12/09/24 14:36 Oxygen Delivery Method Room Air Weight: 85.4 kg Body Mass Index (BMI) 30.4 Intake & Output: Intake and Output for Last 24 Hours 12/07/24 12/08/24 12/09/24 23:59 23:59 23:59 Intake Total 1200 / 1200 1025 / 1025 984.25 / 984.25 Balance 1200 / 1200 1025 / 1025 984.25 / 984.25 Lab / Micro Data 12/09/24 05:36 12/09/24 05:36 Labs: Laboratory Results - last 24 hr 12/06/24 17:55: Synovial Glucose 22 12/09/24 05:36: WBC 10.5, RBC 4.90, Hgb 13.4, Hct 39.9 L, MCV 81.4, MCH 27.3, MCHC 33.6, RDW Std Deviation 41.1, RDW Coeff of Betzaida 14.1, Plt Count 299, MPV 10.9, Immature Gran % (Auto) 0.400, Neut % (Auto) 76.9 H, Lymph % (Auto) 10.4 L, [place] % (Auto) 10.7 H, Eos % (Auto) 1.2, Baso % (Auto) 0.4, Absolute Neuts (auto) 8.1 H, Absolute Lymphs (auto) 1.09, Nucleated RBC % 0, Sodium 132 L, Potassium 3.7, Chloride 101, Carbon Dioxide 26.0, Anion Gap 6, BUN 11, Creatinine 0.95, Estim Creat Clear Calc 90.02, Est GFR (MDRD) Af Amer 106, Est GFR (MDRD) Non-Af 88, BUN/Creatinine Ratio 11.6, Glucose 122 H, Calcium 8.6 Micro: Microbiology 12/06/24 17:55 Fluid - Synovial (joint) Gram Stain - Final 12/06/24 17:55 Fluid - Synovial (joint) Body Fluid Culture - Final Staphylococcus aureus 12/06/24 17:55 Fluid - Synovial (joint) Anaerobic Culture - Preliminary Checking for anaerobes, further studies to follow. 12/06/24 18:46 Blood Culture (Wb) - Anticubital Left Bacteria Detection (PCR) - Final Staphylococcus aureus 12/06/24 18:46 Blood Culture (Wb) - Anticubital Left Blood Culture - Preliminary Staphylococcus aureus Physical Exam Narrative General: Alert, oriented, no apparent distress HEENT: Atraumatic, normocephalic Eyes: extraocular movements grossly intact Neck: Supple Respiratory: normal respiratory effort Cardiovascular: no edema appreciated GI: nondistended Extremities: Right shoulder erythematous and swollen Neuro: No overt focal neurological deficits Psych: Cooperative Assessment & Plan Assessment/Plan (1) Right shoulder pain: PLAN: Plan #Septic joint of right shoulder 2/2 MSSA and staph bacteremia -Patient with elevated white blood cell count and CRP of 177 and shoulder worsened over 4 days and was red and hot with pain with any movement -Status post washout 12/06/[address] Farias -Synovial fluid analysis with elevated white blood cell count that was neutrophil predominant -Preliminary cultures growing Staph aureus -Patient on Rocephin and vancomycin -ID consult placed -Pain control -PT/OT -12/08: Patient growing Staph aureus, sensitivities available. Patient narrowed to cefazolin and midline ordered by ID with cefazolin stop date 12/20/2024 and then outpatient he will have an additional 1 to 2 weeks of p.o. antibiotics. Will need to follow-up with infectious disease in 2 weeks. Patient now with blood culture positive preliminarily for gram-positive cocci in clusters. Could be coag negative staph/contaminant or could be Staph aureus. Will put in for repeat blood cultures and continue cefazolin. ID following. If it is Staph aureus may need echocardiogram. -12/09: Blood culture on admission growing Staph aureus, repeat blood cultures pending, echo ordered given staph bacteremia. Infectious disease managing antibiotics # Hypertension -Patient has been persistently hypertensive, suspect partially due to pain but seems to be elevated consistently -Will add amlodipine -Has hydralazine as needed but will try to maximize oral agents minimize PRNs #DVT ppx: SCDs Caryl Sanchez MD Charges/Coding Visit Charges Inpatient E&M: 50594 Subs Hosp L1
[2024-12-09] MEDS: amLODIPine 5 MG Tablet PO (16:09)
[2024-12-10] MEDS: oxyCODONE 5 MG Tablet PO ×5 (02:21→22:19)
[2024-12-10] MEDS: Acetaminophen 325 MG Tablet 650 MG PO ×3 (02:21→22:19)
[2024-12-10 02:25] VITALS: BP 152/79; PULSE 98; RESP 20; TEMP 36.6; O2SAT 96
[2024-12-10 06:21] LABS: Absolute Lymphocyte Count 1.36 X10^3/uL (0.83-4.51); Absolute Neutrophil Count 7.4 X10^3/uL (2.0-7.7); Basophil# 0.03 X10^3/uL; Basophil% 0.3 % (0-1); Eosinophil# 0.21 X10^3/uL; Eosinophils% 2.1 % (0-5); Hematocrit 38.6 % (40-54); Hemoglobin 13.2 g/dL (13.0-16.5); Lymphocyte # 1.36 X10^3/ul (0.83-4.51); Lymphocyte % 13.3 % (19-41); Mean Corp Hgb Conc 34.2 g/dL (32-36); Mean Corpuscular Hgb 27.1 pg (27.0-32.0); Mean Corpuscular Volume 79.3 fL (80-94); Mean Platelet Vol. 10.3 fl (6.2-12.0); Monocyte% 11.7 % (0-10); NRBC Flagged by Analyzer 0 % (0-5); Neutrophil # 7.41 X10^3/uL (2.7-7.7); Neutrophil % 72.3 % (47-70); Platelet Count 347 K/mm3 (150-450); RBC Distribution Width SD 40.6 fl (35.1-43.9); Red Blood Count 4.87 M/mm3 (4.6-6.2); White Blood Count 10.2 K/mm3 (4.4-11.0)
[2024-12-10] MEDS: Cefazolin 2 GM in Syringe IV ×3 (06:34→22:22)
[2024-12-10] MEDS: 0.9% Saline Lock 10 ML Syringe IV ×2 (06:38→13:55)
[2024-12-10 06:52] LABS: Anion Gap 7 (5-15); BUN 11 mg/dL (7-18); BUN/Creat Ratio 12.3 RATIO (10-20); Calcium,Total 8.9 mg/dL (8.5-10.1); Chloride 100 mmol/L (98-107); Creatinine, Serum 0.89 mg/dL (0.70-1.30); EST Glomerular Filtration Rate 94 mL/min (>60); Est Glom Filt Rate - Afr Amer 114 mL/min (>60); Estimated Creatinine Clearance 96.09 ml/min; Glucose 112 mg/dL (74-106); Potassium 3.9 mmol/L (3.5-5.1); Sodium Level 132 mmol/L (136-145)
[2024-12-10 08:02] VITALS: BP 161/92; PULSE 89; RESP 16; TEMP 37; O2SAT 99
--- NOTE | 2024-12-10 10:10 | PN.HOSP_ITS ---
Reason for Visit Reason for Visit: Diagnoses Methicillin susceptible Staphylococcus aureus infection as the cause of diseases classified elsewhere (12/06/24) Cellulitis, unspecified (12/06/24) Pyogenic arthritis, unspecified (12/06/24) Pain in right shoulder (12/06/24) Bacteremia (12/06/24) Subjective Subjective Patient evaluated this a.m., he feels like his shoulder is more swollen and tight with the tight feeling going into his arm. Aside from his arm he has no other complaints Objective Data Objective Data Vital Signs: Vital Signs Temp Pulse Resp BP Pulse Ox O2 Del Method 99.1 F 98 16 158/89 H 98 Room Air 12/10/24 13:51 12/10/24 13:51 12/10/24 13:51 12/10/24 13:51 12/10/24 13:51 12/10/24 13:51 Oxygen Delivery Method Room Air Weight: 85.4 kg Body Mass Index (BMI) 30.4 Intake & Output: Intake and Output for Last 24 Hours 12/08/24 12/09/24 12/10/24 23:59 23:59 23:59 Intake Total 1025 / 1025 1354.25 / 1354.25 930 / 930 Balance 1025 / 1025 1354.25 / 1354.25 930 / 930 Lab / Micro Data 12/10/24 05:33 12/10/24 05:33 Labs: Laboratory Results - last 24 hr 12/10/24 05:33: WBC 10.2, RBC 4.87, Hgb 13.2, Hct 38.6 L, MCV 79.3 L, MCH 27.1, MCHC 34.2, RDW Std Deviation 40.6, RDW Coeff of Betzaida 14.0, Plt Count 347, MPV 10.3, Immature Gran % (Auto) 0.300, Neut % (Auto) 72.3 H, Lymph % (Auto) 13.3 L, [place] % (Auto) 11.7 H, Eos % (Auto) 2.1, Baso % (Auto) 0.3, Absolute Neuts (auto) 7.4, Absolute Lymphs (auto) 1.36, Nucleated RBC % 0, Sodium 132 L, Potassium 3.9, Chloride 100, Carbon Dioxide 25.0, Anion Gap 7, BUN 11, Creatinine 0.89, Estim Creat Clear Calc 96.09, Est GFR (MDRD) Af Amer 114, Est GFR (MDRD) Non-Af 94, BUN/Creatinine Ratio 12.3, Glucose 112 H, Calcium 8.9 Micro: Microbiology 12/06/24 18:46 Blood Culture (Wb) - Anticubital Left Bacteria Detection (PCR) - Final Staphylococcus aureus 12/06/24 18:46 Blood Culture (Wb) - Anticubital Left Blood Culture - Final Staphylococcus aureus 12/06/24 17:55 Fluid - Synovial (joint) Gram Stain - Final 12/06/24 17:55 Fluid - Synovial (joint) Body Fluid Culture - Final Staphylococcus aureus 12/06/24 17:55 Fluid - Synovial (joint) Anaerobic Culture - Preliminary Checking for anaerobes, further studies to follow. Radiography Diagnostic Testing: Radiology Impression Upper Extremity CT 12/10/24 10:19 IMPRESSION: Moderate glenohumeral joint effusion with fluid communicating into the subacromial-subdeltoid bursa. Irregular peripheral enhancement of the synovium of the glenohumeral joint and subacromial-subdeltoid bursa, compatible with synovitis. Mild acromioclavicular arthrosis. Electronically Signed: Shravan Titus MD at 11:56 EST , Physical Exam Narrative General: Alert, oriented, no apparent distress HEENT: Atraumatic, normocephalic Eyes: extraocular movements grossly intact Neck: Supple Respiratory: normal respiratory effort Cardiovascular: no edema appreciated GI: nondistended Extremities: Right shoulder erythematous and swollen, erythematous slightly outside of the drawn lines and does still have some erythema and warmth Neuro: No overt focal neurological deficits Psych: Cooperative Assessment & Plan Assessment/Plan (1) Right shoulder pain: PLAN: Plan #Septic joint of right shoulder 2/2 MSSA and staph bacteremia -Patient with elevated white blood cell count and CRP of 177 and shoulder worsened over 4 days and was red and hot with pain with any movement -Status post washout 12/06/[address] Farias -Synovial fluid analysis with elevated white blood cell count that was neutrophil predominant -Preliminary cultures growing Staph aureus -Patient on Rocephin and vancomycin -ID consult placed -Pain control -PT/OT -12/08: Patient growing Staph aureus, sensitivities available. Patient narrowed to cefazolin and midline ordered by ID with cefazolin stop date 12/20/2024 and then outpatient he will have an additional 1 to 2 weeks of p.o. antibiotics. Will need to follow-up with infectious disease in 2 weeks. Patient now with blood culture positive preliminarily for gram-positive cocci in clusters. Could be coag negative staph/contaminant or could be Staph aureus. Will put in for repeat blood cultures and continue cefazolin. ID following. If it is Staph aureus may need echocardiogram. -12/09: Blood culture on admission growing Staph aureus, repeat blood cultures pending, echo ordered given staph bacteremia. Infectious disease managing antibiotics -12/10: Patient this a.m. complaining of some more swelling and pain so discussed with infectious disease who recommended reinitiating vancomycin and obtaining a CT. CT with moderate glenohumeral joint effusion and fluid communicating into the subacromial?subdeltoid bursa. Irregular peripheral enhancement of the synovium of the glenohumeral joint and subacromial?subdeltoid bursa. Unclear significance. Repeat blood cultures thus far negative. Ortho monitoring, no indication for repeat I&D at this time but this will continue to be assessed. # Hypertension -Patient has been persistently hypertensive, suspect partially due to pain but seems to be elevated consistently -Will add amlodipine -Has hydralazine as needed but will try to maximize oral agents minimize PRNs -12/10: Amlodipine added, will continue to monitor, suspect this is somewhat elevated by patient's pain as well #DVT ppx: SCDs Caryl Sanchez MD Time spent in the patient's overall evaluation,decision-making process, review of diagnostic data, adjustment of management, discussion with other providers, nursing nursing and ancillary staff involved in patient's care documentation, 37 Minutes Charges/Coding Visit Charges Inpatient E&M: 05678 Subs Hosp L2
--- NOTE | 2024-12-10 10:19 | CT_ITS ---
STUDY: CT RIGHT SHOULDER WITH IV CONTRAST REASON FOR EXAM: Male, 54 years old. Right septic shoulder s/p washout and abx now worsening. RADIATION DOSAGE (If Supplied By Facility): CTDIvol = ( 44.01 ) mGy, DLP = ( 2796.73 ) mGycm TECHNIQUE: The patient was scanned in a multi detector CT scanner. High resolution transaxial imaging was performed following intravenous administration of 100 mL Isovue-300 contrast. Sagittal and coronal images were reconstructed. Individualized dose optimization techniques were used for this CT. COMPARISON: Right shoulder radiographs dated 12/04/2024. FINDINGS: Normal glenoid rim, neck and visualized scapula. Normal humeral head, neck and tuberosities. There is a moderate glenohumeral joint effusion with fluid communicating into the subacromial-subdeltoid bursa. There is irregular peripheral enhancement of the synovium of the glenohumeral joint and subacromial-subdeltoid bursa, compatible with synovitis. Normal coracoid process. Normal visualized lateral clavicle. There is mild acromioclavicular arthrosis. There is a Type II morphology (curved), with a neutral orientation. Normal visualized muscles and soft tissue structures. Intact visualized humerus, radius, and ulna. Normal elbow joint. CT/Extremity Upper WITH Contrast IMPRESSION: Moderate glenohumeral joint effusion with fluid communicating into the subacromial-subdeltoid bursa. Irregular peripheral enhancement of the synovium of the glenohumeral joint and subacromial-subdeltoid bursa, compatible with synovitis. Mild acromioclavicular arthrosis. Electronically Signed: Shravan Titus MD at 11:56 EST ,
[2024-12-10] MEDS: amLODIPine 5 MG Tablet PO (10:31)
[2024-12-10] MEDS: Vancomycin HCl 2,000 MG in 0.9% Normal Saline (500mL Bag) 500 ML 250 MG IV (11:59)
--- NOTE | 2024-12-10 12:18 | CASEMGMT ---
Addendum entered by Christine Fournier 12/10/24 14:12: RN ANNETTE into pt room, pt aware this RN CM will check in on him on Friday for dc readiness and to set up IV atb. Pt verbalizes understanding and denies questions. Original Note: Spoke with ID, pt will not dc this date or this weekend. Updated [facility] and [facility] that RN CM will update on Friday when more information is known.
--- NOTE | 2024-12-10 12:58 | PCM.PN.ORT ---
Subjective Subjective doing reasonably well, still having pain and swelling to the upper extremity Objective Data Objective Data Vital Signs: Vital Signs Temp Pulse Resp BP Pulse Ox O2 Del Method 98.6 F 89 16 161/92 H 99 Room Air 12/10/24 08:02 12/10/24 08:02 12/10/24 08:02 12/10/24 08:02 12/10/24 08:02 12/10/24 08:02 Oxygen Delivery Method Room Air Weight: 188 lb 4.396 oz Body Mass Index (BMI) 30.4 Intake & Output: Intake and Output for Last 24 Hours 12/08/24 12/09/24 12/10/24 23:59 23:59 23:59 Intake Total 1025 / 1025 1354.25 / 1354.25 370 / 370 Balance 1025 / 1025 1354.25 / 1354.25 370 / 370 Lab / Micro Data Attestation: I reviewed the patient's lab results. 12/10/24 05:33 12/10/24 05:33 Labs: Laboratory Results - last 24 hr 12/10/24 05:33: WBC 10.2, RBC 4.87, Hgb 13.2, Hct 38.6 L, MCV 79.3 L, MCH 27.1, MCHC 34.2, RDW Std Deviation 40.6, RDW Coeff of Betzaida 14.0, Plt Count 347, MPV 10.3, Immature Gran % (Auto) 0.300, Neut % (Auto) 72.3 H, Lymph % (Auto) 13.3 L, [place] % (Auto) 11.7 H, Eos % (Auto) 2.1, Baso % (Auto) 0.3, Absolute Neuts (auto) 7.4, Absolute Lymphs (auto) 1.36, Nucleated RBC % 0, Sodium 132 L, Potassium 3.9, Chloride 100, Carbon Dioxide 25.0, Anion Gap 7, BUN 11, Creatinine 0.89, Estim Creat Clear Calc 96.09, Est GFR (MDRD) Af Amer 114, Est GFR (MDRD) Non-Af 94, BUN/Creatinine Ratio 12.3, Glucose 112 H, Calcium 8.9 Micro: Microbiology 12/06/24 18:46 Blood Culture (Wb) - Anticubital Left Bacteria Detection (PCR) - Final Staphylococcus aureus 12/06/24 18:46 Blood Culture (Wb) - Anticubital Left Blood Culture - Final Staphylococcus aureus 12/06/24 17:55 Fluid - Synovial (joint) Gram Stain - Final 12/06/24 17:55 Fluid - Synovial (joint) Body Fluid Culture - Final Staphylococcus aureus 12/06/24 17:55 Fluid - Synovial (joint) Anaerobic Culture - Preliminary Checking for anaerobes, further studies to follow. Radiography Diagnostic Testing: Radiology Impression Echocardiogram 12/09/24 08:11 Interpretation Summary The estimated ejection fraction is 55 %. No evidence for diastolic dysfunction. Trivial mitral valve insufficiency. Ordering Physician: Caryl Sanchez Referring Physician: Fady Farias Performed By: Kassandra Bueno RCS Upper Extremity CT 12/10/24 10:19 IMPRESSION: Moderate glenohumeral joint effusion with fluid communicating into the subacromial-subdeltoid bursa. Irregular peripheral enhancement of the synovium of the glenohumeral joint and subacromial-subdeltoid bursa, compatible with synovitis. Mild acromioclavicular arthrosis. Electronically Signed: Shravan Titus MD at 11:56 EST , Physical Exam Narrative less redness today, swelling to the hand on the right side. portals clean and dry, still painful with shoulder motion but most consistent with post op pain Const alert and oriented x3 Constitutional Narrative: hand warm well perfused, forearm soft, moderate swelling. Assessment & Plan Assessment/Plan (1) Cellulitis: PLAN: 54 yr M POD 4. CT showing an effusion - unsure if from post op arthroscopy or recurrent infectious fluid - but patient continues to have slow improvement with antibiotics. swelling likely dependent edema in the hand and forearm, and the cellulitis part of things is improving. I would not recommend right at this moment return trip for I and D, but will follow closely. (2) MSSA bacteremia: (3) Septic joint of right shoulder region: (4) Right shoulder pain:
--- NOTE | 2024-12-10 13:27 | PCM.RX.CS ---
Consult Antibiotic Management Pharmacy has been consulted to manage selected antibiotic: Vancomycin Type of Intervention Type of Consult: New start Suspected Infection Suspected Infection: Skin/Soft tissue Prior Doses of Antibiotics Prior Doses of Antibiotics Received/Current Regimen: Vancomycin 2000 mg IV x 1 given 12/10/24 @ 1159 Labs Labs: Sodium 132 mmol/L (136-145) L 12/10/24 05:33 Potassium 3.9 mmol/L (3.5-5.1) 12/10/24 05:33 Chloride 100 mmol/L (98-107) 12/10/24 05:33 Carbon Dioxide 25.0 mmol/L (21.0-32.0) 12/10/24 05:33 Anion Gap 7 (5-15) 12/10/24 05:33 BUN 11 mg/dL (7-18) 12/10/24 05:33 Creatinine 0.89 mg/dL (0.70-1.30) 12/10/24 05:33 Est GFR (MDRD) Af Amer 114 mL/min (>60) 12/10/24 05:33 Est GFR (MDRD) Non-Af 94 mL/min (>60) 12/10/24 05:33 BUN/Creatinine Ratio 12.3 RATIO (10-20) 12/10/24 05:33 Glucose 112 mg/dL (74-106) H 12/10/24 05:33 Vancomycin Trough 6.7 ug/mL (5.0-15.0) 12/08/24 04:27 Microbiology Microbiology: Microbiology 12/06/24 18:46 Blood Culture (Wb) - Anticubital Left Bacteria Detection (PCR) - Final Staphylococcus aureus 12/06/24 18:46 Blood Culture (Wb) - Anticubital Left Blood Culture - Final Staphylococcus aureus 12/06/24 17:55 Fluid - Synovial (joint) Gram Stain - Final 12/06/24 17:55 Fluid - Synovial (joint) Body Fluid Culture - Final Staphylococcus aureus 12/06/24 17:55 Fluid - Synovial (joint) Anaerobic Culture - Preliminary Checking for anaerobes, further studies to follow. Dosing Weight Weight used for dosin kg Estimated Creatinine Clearance Estimated Creatinine Clearance: ~ 96 Goal Trough Goal Trough: 15-20 mcg/mL Pharmacy Plan for Drug Dosing Pharmacy Plan for Drug Dosing: Vancomycin 2000 mg IV x 1 followed by 1750 mg Q12H based on recent dosing strategy. Pharmacy Service will continue to monitor and adjust dosing as required. Follow-Up Labs Follow-Up Labs: Trough: Vancomycin Date/Time Labs Ordered Labs to be done on [date and time ordered]: 12/11/24 @ 3069
--- NOTE | 2024-12-10 13:43 | PCM.PN.ID ---
Physical Exam Narrative Feeling ok, shoulder still sore/red/swollen. No fever, no n/v/d. Const alert and no apparent distress General Appearance: cooperative Resp normal air movement and clear to auscultation bilaterally Cardio regular rate and regular rhythm GI soft to palpation, non-tender and non-distended Skin Skin Narrative: r shoulder redness, swelling, warmth, tenderness ID ID: Route of nutrition/ use of supplements: [] Nutritional Intake: [] IV Site: [] Phan Catheter: [] Assessment & Plan Assessment/Plan (1) Septic joint of right shoulder region: PLAN: Complicated by MSSA bacteremia. Aspiration done, taken to OR 12/06/24 for I&D by Dr. Farias. Cxs MSSA. Cont cefazolin. Repeat bcx ngtd, no veg seen on echo. Shoulder worse today, added vanc and ordered CT. Will follow, d/w Dr. Sanchez (2) MSSA bacteremia:
[2024-12-10 13:51] VITALS: BP 158/89; PULSE 98; RESP 16; TEMP 37.3; O2SAT 98
[2024-12-10 22:25] VITALS: BP 142/84; PULSE 104; RESP 20; TEMP 37.3; O2SAT 97
[2024-12-11] MEDS: Vancomycin HCl 1,750 MG in 0.9% Normal Saline (500mL Bag) 500 ML 250 MG IV ×2 (00:25→12:00)
[2024-12-11 02:25] VITALS: BP 129/86; PULSE 97; RESP 16; TEMP 36.9; O2SAT 95
[2024-12-11] MEDS: oxyCODONE 5 MG Tablet PO ×6 (02:28→23:15)
[2024-12-11] MEDS: Acetaminophen 325 MG Tablet 650 MG PO ×6 (02:28→23:14)
[2024-12-11] MEDS: Cefazolin 2 GM in Syringe IV ×3 (06:27→22:03)
[2024-12-11] MEDS: 0.9% Saline Lock 10 ML Syringe IV ×3 (06:28→22:03)
[2024-12-11 06:45] LABS: Absolute Lymphocyte Count 1.15 X10^3/uL (0.83-4.51); Absolute Neutrophil Count 7.4 X10^3/uL (2.0-7.7); Basophil# 0.07 X10^3/uL; Basophil% 0.7 % (0-1); Eosinophil# 0.22 X10^3/uL; Eosinophils% 2.2 % (0-5); Hematocrit 40.1 % (40-54); Hemoglobin 13.9 g/dL (13.0-16.5); Lymphocyte # 1.15 X10^3/ul (0.83-4.51); Lymphocyte % 11.4 % (19-41); Mean Corp Hgb Conc 34.7 g/dL (32-36); Mean Corpuscular Hgb 27.5 pg (27.0-32.0); Mean Corpuscular Volume 79.4 fL (80-94); Mean Platelet Vol. 9.8 fl (6.2-12.0); Monocyte# 1.14 X10^3/uL; Monocyte% 11.3 % (0-10); NRBC Flagged by Analyzer 0 % (0-5); Neutrophil # 7.42 X10^3/uL (2.7-7.7); Neutrophil % 73.8 % (47-70); Platelet Count 390 K/mm3 (150-450); RBC Distribution Width SD 40.3 fl (35.1-43.9); Red Blood Count 5.05 M/mm3 (4.6-6.2); White Blood Count 10.1 K/mm3 (4.4-11.0)
[2024-12-11 07:21] LABS: Anion Gap 7 (5-15); BUN 13 mg/dL (7-18); BUN/Creat Ratio 13.7 RATIO (10-20); Calcium,Total 8.9 mg/dL (8.5-10.1); Chloride 102 mmol/L (98-107); Creatinine, Serum 0.95 mg/dL (0.70-1.30); EST Glomerular Filtration Rate 87 mL/min (>60); Est Glom Filt Rate - Afr Amer 105 mL/min (>60); Estimated Creatinine Clearance 90.02 ml/min; Glucose 114 mg/dL (74-106); Potassium 4.2 mmol/L (3.5-5.1); Sodium Level 134 mmol/L (136-145)
--- NOTE | 2024-12-11 07:25 | PCM.PN.HOSP ---
Reason for Visit Reason for Visit: Diagnoses Methicillin susceptible Staphylococcus aureus infection as the cause of diseases classified elsewhere (12/06/24) Cellulitis, unspecified (12/06/24) Pyogenic arthritis, unspecified (12/06/24) Pain in right shoulder (12/06/24) Bacteremia (12/06/24) Subjective Subjective Patient feeling similar today if not slightly better, he had fluid aspiration at bedside. Still has some pain and erythema, denies any other complaints at this time Objective Data Objective Data Vital Signs: Vital Signs Temp Pulse Resp BP Pulse Ox O2 Del Method 98.5 F 97 16 129/86 H 95 Room Air 12/11/24 02:25 12/11/24 02:25 12/11/24 02:25 12/11/24 02:25 12/11/24 02:25 12/11/24 02:25 Oxygen Delivery Method Room Air Weight: 85.4 kg Body Mass Index (BMI) 30.4 Intake & Output: Intake and Output for Last 24 Hours 12/09/24 12/10/24 12/11/24 23:59 23:59 23:59 Intake Total 1354.25 / 1354.25 1500 / 1500 955 / 955 Balance 1354.25 / 1354.25 1500 / 1500 955 / 955 Lab / Micro Data 12/11/24 06:31 12/11/24 06:31 Labs: Laboratory Results - last 24 hr 12/11/24 06:31: WBC 10.1, RBC 5.05, Hgb 13.9, Hct 40.1, MCV 79.4 L, MCH 27.5, MCHC 34.7, RDW Std Deviation 40.3, RDW Coeff of Betzaida 14.0, Plt Count 390, MPV 9.8, Immature Gran % (Auto) 0.600, Neut % (Auto) 73.8 H, Lymph % (Auto) 11.4 L, [place] % (Auto) 11.3 H, Eos % (Auto) 2.2, Baso % (Auto) 0.7, Absolute Neuts (auto) 7.4, Absolute Lymphs (auto) 1.15, Nucleated RBC % 0, Sodium 134 L, Potassium 4.2, Chloride 102, Carbon Dioxide 25.0, Anion Gap 7, BUN 13, Creatinine 0.95, Estim Creat Clear Calc 90.02, Est GFR (MDRD) Af Amer 105, Est GFR (MDRD) Non-Af 87, BUN/Creatinine Ratio 13.7, Glucose 114 H, Calcium 8.9 Micro: Microbiology 12/08/24 20:04 Blood Culture (Wb) - Left Hand Blood Culture - Preliminary No growth in 48 hours. 12/08/24 19:50 Blood Culture (Wb) - Left Hand Blood Culture - Preliminary No growth in 48 hours. 12/06/24 18:46 Blood Culture (Wb) - Anticubital Left Bacteria Detection (PCR) - Final Staphylococcus aureus 12/06/24 18:46 Blood Culture (Wb) - Anticubital Left Blood Culture - Final Staphylococcus aureus 12/06/24 17:55 Fluid - Synovial (joint) Gram Stain - Final 12/06/24 17:55 Fluid - Synovial (joint) Body Fluid Culture - Final Staphylococcus aureus 12/06/24 17:55 Fluid - Synovial (joint) Anaerobic Culture - Preliminary Checking for anaerobes, further studies to follow. Radiography Diagnostic Testing: Radiology Impression Upper Extremity CT 12/10/24 10:19 IMPRESSION: Moderate glenohumeral joint effusion with fluid communicating into the subacromial-subdeltoid bursa. Irregular peripheral enhancement of the synovium of the glenohumeral joint and subacromial-subdeltoid bursa, compatible with synovitis. Mild acromioclavicular arthrosis. Electronically Signed: Shravan Titus MD at 11:56 EST Reading Location ID and State: [address] [place] [address] , Service support , Physical Exam Narrative General: Alert, no apparent distress HEENT: Atraumatic, normocephalic Eyes: extraocular movements grossly intact Neck: Supple Respiratory: normal respiratory effort Cardiovascular: no edema appreciated GI: nondistended Extremities: Right shoulder erythematous and swollen but seems slightly less so than yesterday and hand/arm seems less swollen. Does have erythematous almost rash-like appearance on the inner portion of right arm and right chest wall that are similar to yesterday Neuro: No overt focal neurological deficits Psych: Cooperative Assessment & Plan Assessment/Plan (1) Right shoulder pain: PLAN: Plan #Septic joint of right shoulder 2/2 MSSA and staph bacteremia -Patient with elevated white blood cell count and CRP of 177 and shoulder worsened over 4 days and was red and hot with pain with any movement -Status post washout 12/06/[address] Farias -Synovial fluid analysis with elevated white blood cell count that was neutrophil predominant -Preliminary cultures growing Staph aureus -Patient on Rocephin and vancomycin -ID consult placed -Pain control -PT/OT -12/08: Patient growing Staph aureus, sensitivities available. Patient narrowed to cefazolin and midline ordered by ID with cefazolin stop date 12/20/2024 and then outpatient he will have an additional 1 to 2 weeks of p.o. antibiotics. Will need to follow-up with infectious disease in 2 weeks. Patient now with blood culture positive preliminarily for gram-positive cocci in clusters. Could be coag negative staph/contaminant or could be Staph aureus. Will put in for repeat blood cultures and continue cefazolin. ID following. If it is Staph aureus may need echocardiogram. -12/09: Blood culture on admission growing Staph aureus, repeat blood cultures pending, echo ordered given staph bacteremia. Infectious disease managing antibiotics -12/10: Patient this a.m. complaining of some more swelling and pain so discussed with infectious disease who recommended reinitiating vancomycin and obtaining a CT. CT with moderate glenohumeral joint effusion and fluid communicating into the subacromial?subdeltoid bursa. Irregular peripheral enhancement of the synovium of the glenohumeral joint and subacromial?subdeltoid bursa. Unclear significance. Repeat blood cultures thus far negative. Ortho monitoring, no indication for repeat I&D at this time but this will continue to be assessed. -12/11: Repeat blood cultures no growth to date, patient remains on vancomycin, cefazolin. Being followed by infectious disease, Ortho primary and monitoring for any further need for intervention-> patient did have bedside aspiration today did not seem consistent with postop hemarthrosis and concomitant superficial cellulitis. Will continue antibiotics and monitoring clinically # Hypertension -Patient has been persistently hypertensive, suspect partially due to pain but seems to be elevated consistently -Will add amlodipine -Has hydralazine as needed but will try to maximize oral agents minimize PRNs -12/10: Amlodipine added, will continue to monitor, suspect this is somewhat elevated by patient's pain as well -12/11: Blood pressure somewhat improved this a.m. to 129/86, continue current dose of amlodipine and can uptitrate as tolerated. Suspect blood pressure will improve his pain levels improved #DVT ppx: SCDs Caryl Sanchez MD Charges/Coding Visit Charges Inpatient E&M: 90782 Subs Hosp L1
[2024-12-11 09:52] VITALS: BP 131/91; PULSE 88; RESP 15; TEMP 37; O2SAT 99
[2024-12-11] MEDS: amLODIPine 5 MG Tablet PO (10:45)
[2024-12-11] MEDS: Senna/Docusate Sodium 1 Tablet 2 TABLET PO ×2 (10:45→22:03)
[2024-12-11] MEDS: Lidocaine 1% (20 ml mdv) 20 ML Vial INFILT (10:46)
--- NOTE | 2024-12-11 10:58 | PCM.PN.ORT ---
Subjective Subjective shoulder pain, and swelling. mostly unchanged. Objective Data Objective Data Vital Signs: Vital Signs Temp Pulse Resp BP Pulse Ox O2 Del Method 98.6 F 88 15 131/91 H 99 Room Air 12/11/24 09:52 12/11/24 09:52 12/11/24 09:52 12/11/24 09:52 12/11/24 09:52 12/11/24 09:52 Oxygen Delivery Method Room Air Weight: 188 lb 4.396 oz Body Mass Index (BMI) 30.4 Intake & Output: Intake and Output for Last 24 Hours 12/09/24 12/10/24 12/11/24 23:59 23:59 23:59 Intake Total 1354.25 / 1354.25 1500 / 1500 955 / 955 Balance 1354.25 / 1354.25 1500 / 1500 955 / 955 Lab / Micro Data Attestation: I reviewed the patient's lab results. 12/11/24 06:31 12/11/24 06:31 Labs: Laboratory Results - last 24 hr 12/11/24 06:31: WBC 10.1, RBC 5.05, Hgb 13.9, Hct 40.1, MCV 79.4 L, MCH 27.5, MCHC 34.7, RDW Std Deviation 40.3, RDW Coeff of Betzaida 14.0, Plt Count 390, MPV 9.8, Immature Gran % (Auto) 0.600, Neut % (Auto) 73.8 H, Lymph % (Auto) 11.4 L, [place] % (Auto) 11.3 H, Eos % (Auto) 2.2, Baso % (Auto) 0.7, Absolute Neuts (auto) 7.4, Absolute Lymphs (auto) 1.15, Nucleated RBC % 0, Sodium 134 L, Potassium 4.2, Chloride 102, Carbon Dioxide 25.0, Anion Gap 7, BUN 13, Creatinine 0.95, Estim Creat Clear Calc 90.02, Est GFR (MDRD) Af Amer 105, Est GFR (MDRD) Non-Af 87, BUN/Creatinine Ratio 13.7, Glucose 114 H, Calcium 8.9 Micro: Microbiology 12/08/24 20:04 Blood Culture (Wb) - Left Hand Blood Culture - Preliminary No growth in 48 hours. 12/08/24 19:50 Blood Culture (Wb) - Left Hand Blood Culture - Preliminary No growth in 48 hours. 12/06/24 18:46 Blood Culture (Wb) - Anticubital Left Bacteria Detection (PCR) - Final Staphylococcus aureus 12/06/24 18:46 Blood Culture (Wb) - Anticubital Left Blood Culture - Final Staphylococcus aureus 12/06/24 17:55 Fluid - Synovial (joint) Gram Stain - Final 12/06/24 17:55 Fluid - Synovial (joint) Body Fluid Culture - Final Staphylococcus aureus 12/06/24 17:55 Fluid - Synovial (joint) Anaerobic Culture - Preliminary Checking for anaerobes, further studies to follow. Radiography Diagnostic Testing: Radiology Impression Upper Extremity CT 12/10/24 10:19 IMPRESSION: Moderate glenohumeral joint effusion with fluid communicating into the subacromial-subdeltoid bursa. Irregular peripheral enhancement of the synovium of the glenohumeral joint and subacromial-subdeltoid bursa, compatible with synovitis. Mild acromioclavicular arthrosis. Electronically Signed: Shravan Titus MD at 11:56 EST , Physical Exam Const alert and no apparent distress General Appearance: cooperative Extremity Extremity Narrative: slight less redness, still pain with shoulder motion, less warmth Assessment & Plan Assessment/Plan (1) Septic joint of right shoulder region: PLAN: 54 yr M POD 5 right shoulder I and D for SA. CT shows a moderate effusion. Unclear if this is recurrence or simply post op fluid / bleeding from the arthroscopy. Patient does still have quite a bit of shoulder pain with motion. Most stage 1 SA do resolve with one I and D, but some may require multiple trips to the OR. We discussed pros and cons of an aspiration, would possibly benefit from evacuation of any repeat infectious fluid and avoid a second GA. Risks of pain or further irritation / damage to the joint relatively low. Will proceed. Did a consent for right shoulder aspiration and 2 person consent with his nurse Jamie. Pros and cons risks and benefits of a right shoulder aspiration were discussed. Patient wished to proceed. Risks include but not limited to infection, pain, stiffness, damage to other structures, neurovascular injury, wear further tear of the tendon and other structures such as the skin, bleeding, allergic reaction, acute flare reaction and other risks. Obtained informed consent for bedside procedure, brady marked. Anterior aspect of the shoulder was prepped with chlorhexidine solution allowed to thoroughly dry over 3 minutes. Pre procedure timeout. 8 cc 1% lidocaine used. Using sterile technique, aspirated the joint, only congealed blood. No pus no purulent fluid. Attempted same procedure in posterior sub acromial space, with 2 cc 1% lidocaine. Again, no fluid able to be aspirated. Bandage placed. The patient tolerated well without any noted complication. No fluid able to be sent. Most likely the patient has a post op fluid and hemarthrosis irritating the joint, and a concomitant cellulitis of the soft tissues surrounding the shoulder. Slowly improving overall and would recommend continuing broad spec antibiotics. No compelling evidence on aspiration attempt to justify second trip to the OR, however will continue to follow closely. (2) MSSA bacteremia: (3) Right shoulder pain: (4) Cellulitis:
[2024-12-11 14:49] VITALS: BP 136/95; PULSE 90; RESP 16; TEMP 36.9; O2SAT 98
[2024-12-11 18:13] VITALS: BP 132/86; PULSE 101; RESP 18; TEMP 37.3; O2SAT 97
[2024-12-11 21:52] VITALS: BP 151/92; PULSE 87; RESP 18; TEMP 37.7; O2SAT 98
[2024-12-12 00:07] LABS: Vancomycin, Trough Level 12.4 ug/mL (5.0-15.0)
[2024-12-12] MEDS: Vancomycin HCl 2,000 MG in 0.9% Normal Saline (500mL Bag) 500 ML 250 MG IV ×2 (00:26→11:42)
--- NOTE | 2024-12-12 01:22 | PCM.RX.CS ---
Consult Antibiotic Management Pharmacy has been consulted to manage selected antibiotic: Vancomycin Type of Intervention Type of Consult: Follow-up Labs Labs: Sodium 134 mmol/L (136-145) L 12/11/24 06:31 Potassium 4.2 mmol/L (3.5-5.1) 12/11/24 06:31 Chloride 102 mmol/L (98-107) 12/11/24 06:31 Carbon Dioxide 25.0 mmol/L (21.0-32.0) 12/11/24 06:31 Anion Gap 7 (5-15) 12/11/24 06:31 BUN 13 mg/dL (7-18) 12/11/24 06:31 Creatinine 0.95 mg/dL (0.70-1.30) 12/11/24 06:31 Est GFR (MDRD) Af Amer 105 mL/min (>60) 12/11/24 06:31 Est GFR (MDRD) Non-Af 87 mL/min (>60) 12/11/24 06:31 BUN/Creatinine Ratio 13.7 RATIO (10-20) 12/11/24 06:31 Glucose 114 mg/dL (74-106) H 12/11/24 06:31 Vancomycin Trough 12.4 ug/mL (5.0-15.0) 12/11/24 22:30 Microbiology Microbiology: Microbiology 12/09/24 11:55 Blood Culture (Wb) - Left Hand Blood Culture - Preliminary No growth in 48 hours. 12/08/24 20:04 Blood Culture (Wb) - Left Hand Blood Culture - Preliminary No growth in 48 hours. 12/08/24 19:50 Blood Culture (Wb) - Left Hand Blood Culture - Preliminary No growth in 48 hours. 12/06/24 18:46 Blood Culture (Wb) - Anticubital Left Bacteria Detection (PCR) - Final Staphylococcus aureus 12/06/24 18:46 Blood Culture (Wb) - Anticubital Left Blood Culture - Final Staphylococcus aureus 12/06/24 17:55 Fluid - Synovial (joint) Gram Stain - Final 12/06/24 17:55 Fluid - Synovial (joint) Body Fluid Culture - Final Staphylococcus aureus 12/06/24 17:55 Fluid - Synovial (joint) Anaerobic Culture - Preliminary Checking for anaerobes, further studies to follow. Goal Trough Goal Trough: 15-20 mcg/mL Pharmacy Plan for Drug Dosing Pharmacy Plan for Drug Dosing: Pharmacy Service will continue to monitor and adjust dosing as required. TROUGH 12.4 @ 10.5 HOURS. INCREASE TO 2GM Q12H AND FOLLOW UP TROUGH PRIOR TO 4TH DOSE Follow-Up Labs Follow-Up Labs: Trough: Vancomycin Date/Time Labs Ordered Labs to be done on [date and time ordered]: 12/13 @ 1134
[2024-12-12 03:48] VITALS: BP 153/84; PULSE 93; RESP 18; TEMP 36.7; O2SAT 98
[2024-12-12] MEDS: oxyCODONE 5 MG Tablet PO ×5 (03:51→21:10)
[2024-12-12] MEDS: Acetaminophen 325 MG Tablet 650 MG PO ×5 (03:51→21:10)
[2024-12-12] MEDS: 0.9% Normal Saline (100mL Bag) 100 ML 15 ML IV (03:54)
[2024-12-12 04:06] LABS: Absolute Neutrophil Count 7.4 X10^3/uL (2.0-7.7); Basophil# 0.06 X10^3/uL; Basophil% 0.6 % (0-1); Eosinophil# 0.26 X10^3/uL; Eosinophils% 2.5 % (0-5); Hematocrit 36.4 % (40-54); Hemoglobin 12.6 g/dL (13.0-16.5); Lymphocyte % 12.6 % (19-41); Mean Corp Hgb Conc 34.6 g/dL (32-36); Mean Corpuscular Hgb 27.2 pg (27.0-32.0); Mean Corpuscular Volume 78.4 fL (80-94); Mean Platelet Vol. 10.2 fl (6.2-12.0); Monocyte# 1.27 X10^3/uL; Monocyte% 12.3 % (0-10); NRBC Flagged by Analyzer 0 % (0-5); Neutrophil # 7.37 X10^3/uL (2.7-7.7); Neutrophil % 71.3 % (47-70); Platelet Count 431 K/mm3 (150-450); RBC Distribution Width SD 39.3 fl (35.1-43.9); Red Blood Count 4.64 M/mm3 (4.6-6.2); White Blood Count 10.3 K/mm3 (4.4-11.0)
[2024-12-12 04:24] LABS: Anion Gap 5 (5-15); BUN 15 mg/dL (7-18); BUN/Creat Ratio 16.9 RATIO (10-20); Calcium,Total 8.7 mg/dL (8.5-10.1); Chloride 102 mmol/L (98-107); Creatinine, Serum 0.89 mg/dL (0.70-1.30); EST Glomerular Filtration Rate 95 mL/min (>60); Est Glom Filt Rate - Afr Amer 114 mL/min (>60); Estimated Creatinine Clearance 96.09 ml/min; Glucose 123 mg/dL (74-106); Potassium 4.1 mmol/L (3.5-5.1); Sodium Level 131 mmol/L (136-145)
[2024-12-12] MEDS: Cefazolin 2 GM in Syringe IV ×3 (06:44→21:10)
--- NOTE | 2024-12-12 07:26 | PN.HOSP_ITS ---
Reason for Visit Reason for Visit: Diagnoses Methicillin susceptible Staphylococcus aureus infection as the cause of diseases classified elsewhere (12/06/24) Cellulitis, unspecified (12/06/24) Pyogenic arthritis, unspecified (12/06/24) Pain in right shoulder (12/06/24) Bacteremia (12/06/24) Subjective Subjective Shoulder feeling somewhat better today, still little bit painful and swollen but improving overall, no new or acute complaints Objective Data Objective Data Vital Signs: Vital Signs Temp Pulse Resp BP Pulse Ox O2 Del Method 98.1 F 93 18 153/84 H 98 Room Air 12/12/24 03:48 12/12/24 03:48 12/12/24 03:48 12/12/24 03:48 12/12/24 03:48 12/12/24 03:48 Oxygen Delivery Method Room Air Weight: 85.4 kg Body Mass Index (BMI) 30.4 Intake & Output: Intake and Output for Last 24 Hours 12/10/24 12/11/24 12/12/24 23:59 23:59 23:59 Intake Total 1500 / 1500 1530 / 1530 1160 / 1160 Balance 1500 / 1500 1530 / 1530 1160 / 1160 Lab / Micro Data 12/12/24 03:35 12/12/24 03:35 Labs: Laboratory Results - last 24 hr 12/11/24 22:30: Vancomycin Trough 12.4 12/12/24 03:35: WBC 10.3, RBC 4.64, Hgb 12.6 L, Hct 36.4 L, MCV 78.4 L, MCH 27.2, MCHC 34.6, RDW Std Deviation 39.3, RDW Coeff of Betzaida 14.0, Plt Count 431, MPV 10.2, Immature Gran % (Auto) 0.700, Neut % (Auto) 71.3 H, Lymph % (Auto) 12.6 L, [place] % (Auto) 12.3 H, Eos % (Auto) 2.5, Baso % (Auto) 0.6, Absolute Neuts (auto) 7.4, Absolute Lymphs (auto) 1.30, Nucleated RBC % 0, Sodium 131 L, Potassium 4.1, Chloride 102, Carbon Dioxide 24.0, Anion Gap 5, BUN 15, Creatinine 0.89, Estim Creat Clear Calc 96.09, Est GFR (MDRD) Af Amer 114, Est GFR (MDRD) Non-Af 95, BUN/Creatinine Ratio 16.9, Glucose 123 H, Calcium 8.7 Micro: Microbiology 12/06/24 18:46 Blood Culture (Wb) - Anticubital Left Bacteria Detection (PCR) - Final Staphylococcus aureus 12/06/24 18:46 Blood Culture (Wb) - Anticubital Left Blood Culture - Final Staphylococcus aureus 12/09/24 11:55 Blood Culture (Wb) - Left Hand Blood Culture - Preliminary No growth in 48 hours. 12/08/24 20:04 Blood Culture (Wb) - Left Hand Blood Culture - Preliminary No growth in 48 hours. 12/08/24 19:50 Blood Culture (Wb) - Left Hand Blood Culture - Preliminary No growth in 48 hours. 12/06/24 17:55 Fluid - Synovial (joint) Gram Stain - Final 12/06/24 17:55 Fluid - Synovial (joint) Body Fluid Culture - Final Staphylococcus aureus 12/06/24 17:55 Fluid - Synovial (joint) Anaerobic Culture - Preliminary Checking for anaerobes, further studies to follow. Physical Exam Narrative General: Alert, no apparent distress HEENT: Atraumatic, normocephalic Eyes: extraocular movements grossly intact Neck: Supple Respiratory: normal respiratory effort Cardiovascular: no edema appreciated GI: nondistended Extremities: Right shoulder improving erythema and swelling Neuro: No overt focal neurological deficits Psych: Cooperative Assessment & Plan Assessment/Plan (1) Right shoulder pain: PLAN: Plan #Septic joint of right shoulder 2/2 MSSA and staph bacteremia -Patient with elevated white blood cell count and CRP of 177 and shoulder worsened over 4 days and was red and hot with pain with any movement -Status post washout 12/06/[address] Farias -Synovial fluid analysis with elevated white blood cell count that was neutrophil predominant -Preliminary cultures growing Staph aureus -Patient on Rocephin and vancomycin -ID consult placed -Pain control -PT/OT -12/08: Patient growing Staph aureus, sensitivities available. Patient narrowed to cefazolin and midline ordered by ID with cefazolin stop date 12/20/2024 and then outpatient he will have an additional 1 to 2 weeks of p.o. antibiotics. Will need to follow-up with infectious disease in 2 weeks. Patient now with blood culture positive preliminarily for gram-positive cocci in clusters. Could be coag negative staph/contaminant or could be Staph aureus. Will put in for repeat blood cultures and continue cefazolin. ID following. If it is Staph aureus may need echocardiogram. -12/09: Blood culture on admission growing Staph aureus, repeat blood cultures pending, echo ordered given staph bacteremia. Infectious disease managing antibiotics -12/10: Patient this a.m. complaining of some more swelling and pain so discussed with infectious disease who recommended reinitiating vancomycin and obtaining a CT. CT with moderate glenohumeral joint effusion and fluid communicating into the subacromial?subdeltoid bursa. Irregular peripheral enhancement of the synovium of the glenohumeral joint and subacromial?subdeltoid bursa. Unclear significance. Repeat blood cultures thus far negative. Ortho monitoring, no indication for repeat I&D at this time but this will continue to be assessed. -12/11: Repeat blood cultures no growth to date, patient remains on vancomycin, cefazolin. Being followed by infectious disease, Ortho primary and monitoring for any further need for intervention-> patient did have bedside aspiration today did not seem consistent with postop hemarthrosis and concomitant superficial cellulitis. Will continue antibiotics and monitoring clinically -12/12: White blood cell count normalized, afebrile, does seem to be slowly improving. Repeat blood cultures no growth to date, infectious disease managing antibiotics # Hypertension -Patient has been persistently hypertensive, suspect partially due to pain but seems to be elevated consistently -Will add amlodipine -Has hydralazine as needed but will try to maximize oral agents minimize PRNs -12/10: Amlodipine added, will continue to monitor, suspect this is somewhat elevated by patient's pain as well -12/11: Blood pressure somewhat improved this a.m. to 129/86, continue current dose of amlodipine and can uptitrate as tolerated. Suspect blood pressure will improve his pain levels improved -12/12: Discussed with family yesterday and patient usually not hypertensive, suspect this is due to current situation, patient agreeable for amlodipine at this time but intends to monitor blood pressure outpatient #DVT ppx: DANIELs Caryl Sanchez MD Charges/Coding Visit Charges Inpatient E&M: 03277 Subs Hosp L1
[2024-12-12 09:20] VITALS: BP 133/91; PULSE 95; RESP 15; TEMP 36.8; O2SAT 96
[2024-12-12] MEDS: amLODIPine 5 MG Tablet PO (09:23)
[2024-12-12] MEDS: Senna/Docusate Sodium 1 Tablet 2 TABLET PO (12:05)
[2024-12-12] MEDS: 0.9% Saline Lock 10 ML Syringe IV ×2 (14:28→21:11)
[2024-12-12 15:23] VITALS: BP 156/107; PULSE 83; RESP 18; TEMP 36.8; O2SAT 99
[2024-12-12] MEDS: Bisacodyl 5 MG Tablet 10 MG PO (17:28)
[2024-12-12 18:15] VITALS: BP 137/93; PULSE 102; RESP 16; TEMP 37.1; O2SAT 99
[2024-12-12] MEDS: Polyethylene Glycol 3350 17 GM PACKET PO (21:22)
[2024-12-12 21:31] VITALS: BP 139/96; PULSE 97; RESP 18; TEMP 36.9; O2SAT 99
[2024-12-13] MEDS: 0.9% Normal Saline (100mL Bag) 100 ML 15 ML IV (00:16)
[2024-12-13] MEDS: Vancomycin HCl 2,000 MG in 0.9% Normal Saline (500mL Bag) 500 ML 250 MG IV ×2 (00:17→12:12)
[2024-12-13] MEDS: Lidocaine 5% Patch 1 PATCH TOPICAL (00:18)
[2024-12-13] MEDS: cycloBENZAPRine HCl 5 MG TABLET PO (00:18)
[2024-12-13 00:21] VITALS: BP 146/92; PULSE 88; RESP 18; TEMP 36.9; O2SAT 97
[2024-12-13] MEDS: Acetaminophen 325 MG Tablet 650 MG PO ×5 (02:54→22:21)
[2024-12-13] MEDS: Senna/Docusate Sodium 1 Tablet 2 TABLET PO (02:54)
[2024-12-13] MEDS: oxyCODONE 5 MG Tablet PO ×5 (02:55→22:21)
[2024-12-13] MEDS: Cefazolin 2 GM in Syringe IV ×3 (06:25→22:21)
[2024-12-13] MEDS: 0.9% Saline Lock 10 ML Syringe IV ×3 (06:26→22:22)
[2024-12-13 06:27] LABS: Absolute Lymphocyte Count 1.35 X10^3/uL (0.83-4.51); Absolute Neutrophil Count 6.1 X10^3/uL (2.0-7.7); Basophil# 0.08 X10^3/uL; Basophil% 0.9 % (0-1); Eosinophils% 2.3 % (0-5); Hemoglobin 12.7 g/dL (13.0-16.5); Lymphocyte # 1.35 X10^3/ul (0.83-4.51); Lymphocyte % 15.4 % (19-41); Mean Corp Hgb Conc 34.3 g/dL (32-36); Mean Corpuscular Hgb 27.1 pg (27.0-32.0); Mean Corpuscular Volume 79.1 fL (80-94); Mean Platelet Vol. 10.2 fl (6.2-12.0); Monocyte% 11.4 % (0-10); NRBC Flagged by Analyzer 0 % (0-5); Neutrophil # 6.06 X10^3/uL (2.7-7.7); Platelet Count 466 K/mm3 (150-450); RBC Distribution Width SD 39.8 fl (35.1-43.9); Red Blood Count 4.68 M/mm3 (4.6-6.2); White Blood Count 8.8 K/mm3 (4.4-11.0)
[2024-12-13 06:30] VITALS: BP 149/93; PULSE 83; RESP 18; TEMP 37.1; O2SAT 97
[2024-12-13 06:56] LABS: Anion Gap 6 (5-15); BUN 14 mg/dL (7-18); Calcium,Total 8.7 mg/dL (8.5-10.1); Chloride 102 mmol/L (98-107); Creatinine, Serum 0.93 mg/dL (0.70-1.30); EST Glomerular Filtration Rate 89 mL/min (>60); Est Glom Filt Rate - Afr Amer 108 mL/min (>60); Estimated Creatinine Clearance 91.96 ml/min; Glucose 110 mg/dL (74-106); Potassium 4.1 mmol/L (3.5-5.1); Sodium Level 135 mmol/L (136-145)
[2024-12-13 09:07] VITALS: BP 129/91; PULSE 99; RESP 16; TEMP 37.3; O2SAT 98
[2024-12-13] MEDS: amLODIPine 5 MG Tablet PO (09:16)
[2024-12-13] MEDS: Polyethylene Glycol 3350 17 GM PACKET PO ×2 (09:16→22:24)
[2024-12-13] MEDS: Senna Tablet 2 TABLET PO ×2 (11:16→22:24)
[2024-12-13 11:46] LABS: Vancomycin, Trough Level 18.8 ug/mL (5.0-15.0)
[2024-12-13] MEDS: Vancomycin Trough/Random Due 1 LAB MC ×2 (11:52→11:54)
--- NOTE | 2024-12-13 12:01 | PHA.PHARE_ITS ---
Consult Antibiotic Management Pharmacy has been consulted to manage selected antibiotic: Vancomycin Type of Intervention Type of Consult: Follow-up Labs Labs: Sodium 135 mmol/L (136-145) L 12/13/24 05:35 Potassium 4.1 mmol/L (3.5-5.1) 12/13/24 05:35 Chloride 102 mmol/L (98-107) 12/13/24 05:35 Carbon Dioxide 27.0 mmol/L (21.0-32.0) 12/13/24 05:35 Anion Gap 6 (5-15) 12/13/24 05:35 BUN 14 mg/dL (7-18) 12/13/24 05:35 Creatinine 0.93 mg/dL (0.70-1.30) 12/13/24 05:35 Est GFR (MDRD) Af Amer 108 mL/min (>60) 12/13/24 05:35 Est GFR (MDRD) Non-Af 89 mL/min (>60) 12/13/24 05:35 BUN/Creatinine Ratio 15.0 RATIO (10-20) 12/13/24 05:35 Glucose 110 mg/dL (74-106) H 12/13/24 05:35 Vancomycin Trough 18.8 ug/mL (5.0-15.0) H 12/13/24 11:10 Microbiology Microbiology: Microbiology 12/06/24 17:55 Fluid - Synovial (joint) Gram Stain - Final 12/06/24 17:55 Fluid - Synovial (joint) Body Fluid Culture - Final Staphylococcus aureus 12/06/24 17:55 Fluid - Synovial (joint) Anaerobic Culture - Final No anaerobic bacteria isolated. 12/06/24 18:46 Blood Culture (Wb) - Anticubital Left Bacteria Detection (PCR) - Final Staphylococcus aureus 12/06/24 18:46 Blood Culture (Wb) - Anticubital Left Blood Culture - Final Staphylococcus aureus 12/09/24 11:55 Blood Culture (Wb) - Left Hand Blood Culture - Preliminary No growth in 48 hours. 12/08/24 20:04 Blood Culture (Wb) - Left Hand Blood Culture - Preliminary No growth in 48 hours. 12/08/24 19:50 Blood Culture (Wb) - Left Hand Blood Culture - Preliminary No growth in 48 hours. Pharmacy Plan for Drug Dosing Pharmacy Plan for Drug Dosing: VANCOMYCIN LEVEL RECEIVED Current Vancomycin Dose: 2000MG Q12 Number of Doses Received: 6 Vancomycin Level: 18.8 MG/DL Hours Since Last Dose: 11 Renal Function: Scr 0.93 mg/dl, CrCl 91 mL/min Renal Function Trend: stable Vancomycin Plan/Comments: 11 hour trough is therapeutic at 18.8 mg/dL (goal 15- 20). Will continue current dosing a get a level in 2 days. Pending Level: 12/15/24 @ 1130 Pharmacy Service will continue to monitor and adjust dosing as required.
--- NOTE | 2024-12-13 13:04 | PCM.PN.ID ---
Physical Exam Narrative Shoulder better, less red, less sore. No fever, no n/v/d. Const alert and no apparent distress General Appearance: cooperative Resp normal air movement and clear to auscultation bilaterally Cardio regular rate and regular rhythm GI soft to palpation, non-tender and non-distended Skin Skin Narrative: R shoulder less red/warm/sore, still some swelling ID ID: Route of nutrition/ use of supplements: [] Nutritional Intake: [] IV Site: [] Phan Catheter: [] Assessment & Plan Assessment/Plan (1) Septic joint of right shoulder region: PLAN: Complicated by MSSA bacteremia. Aspiration done, taken to OR 12/06/24 for I&D by Dr. Farias. Cxs MSSA. Cont cefazolin. Repeat bcx ngtd since 12/08/24, no veg seen on echo. Shoulder worsened, add vanc, aspiration attempted 12/11/24. Now shoulder much less inflammed. Will order midline change to picc. Ok for discharge with iv cefazolin and po doxy, stop date 01/05/25 with weekly labs, ID followup in 2 weeks. 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
--- NOTE | 2024-12-13 13:12 | CASEMGMT ---
Addendum entered by Christine Fournier 12/13/24 15:58: Picc insertion sent to [facility] and [facility] at this time. Addendum entered by Christine Fournier 12/13/24 15:31: Spoke with Dr. Farias, he is aware that pt is able to dc tomorrow after 2pm IV dose due to [facility] being able to start at 10pm. Pt is currently receiving his picc line. Addendum entered by Christine Fournier 12/13/24 14:55: DELANEY BRYANT into pt room, pt is aware that goal is to have [facility] start at 10pm tomorrow as long as ortho is ok with dc. Pt is agreeable to this. Picc nurse just arrived at this time. Addendum entered by Christine Fournier 12/13/24 14:42: Received notification from [facility] that they can see pt tomorrow evening for a 10pm start. Updated [facility] on this. DELANEY BRYANT to follow. Addendum entered by Christine Fournier 12/13/24 14:22: Per [facility], they need to have picc information by 3:30pm for them to deliver IV med this evening. Message sent to see if they receive picc info in the morning when the soonest the med can be delivered tomorrow. Message sent to [facility] to see their availability for tomorrow SOC. Will await answers. Original Note: Updated [facility] and [place] of IV order. Pt to have midline changed out to a picc. Will await if ortho is ready for pt to dc. Awaiting to see if [facility] can start the patient this evening if so and if IV med can be delivered by then. If [facility] cannot start this evening, ID gave ok to skip a dose of antibiotics for [facility]HC to start.
--- NOTE | 2024-12-13 13:22 | NURSING ---
DYNAMIC ACCESS SENT REQUEST TO CHANGE MIDLINE TO PICC
[2024-12-13 14:01] VITALS: BP 144/84; PULSE 94; RESP 16; TEMP 36.8; O2SAT 97
--- NOTE | 2024-12-13 14:12 | PN.HOSP_ITS ---
Reason for Visit Reason for Visit: Diagnoses Methicillin susceptible Staphylococcus aureus infection as the cause of diseases classified elsewhere (12/06/24) Cellulitis, unspecified (12/06/24) Pyogenic arthritis, unspecified (12/06/24) Pain in right shoulder (12/06/24) Bacteremia (12/06/24) Subjective Subjective Continues to slowly improve, has had some constipation so regimen escalated. Denies any abdominal pain or nausea Objective Data Objective Data Vital Signs: Vital Signs Temp Pulse Resp BP Pulse Ox O2 Del Method 98.3 F 94 16 144/84 H 97 Room Air 12/13/24 14:01 12/13/24 14:01 12/13/24 14:01 12/13/24 14:01 12/13/24 14:12/13/24 14:01 Oxygen Delivery Method Room Air Weight: 85.4 kg Body Mass Index (BMI) 30.4 Intake & Output: Intake and Output for Last 24 Hours 12/11/24 12/12/24 12/13/24 23:59 23:59 23:59 Intake Total 1530 / 1530 1840 / 1840 1257.5 / 1257.5 Balance 1530 / 1530 1840 / 1840 1257.5 / 1257.5 Lab / Micro Data 12/13/24 05:35 12/13/24 05:35 Labs: Laboratory Results - last 24 hr 12/13/24 05:35: WBC 8.8, RBC 4.68, Hgb 12.7 L, Hct 37.0 L, MCV 79.1 L, MCH 27.1, MCHC 34.3, RDW Std Deviation 39.8, RDW Coeff of Betzaida 14.0, Plt Count 466 H, MPV 10.2, Immature Gran % (Auto) 1.000 H, Neut % (Auto) 69.0, Lymph % (Auto) 15.4 L, [place] % (Auto) 11.4 H, Eos % (Auto) 2.3, Baso % (Auto) 0.9, Absolute Neuts (auto) 6.1, Absolute Lymphs (auto) 1.35, Nucleated RBC % 0, Sodium 135 L, Potassium 4.1, Chloride 102, Carbon Dioxide 27.0, Anion Gap 6, BUN 14, Creatinine 0.93, Estim Creat Clear Calc 91.96, Est GFR (MDRD) Af Amer 108, Est GFR (MDRD) Non-Af 89, BUN/Creatinine Ratio 15.0, Glucose 110 H, Calcium 8.7 12/13/24 11:10: Vancomycin Trough 18.8 H Micro: Microbiology 12/06/24 17:55 Fluid - Synovial (joint) Gram Stain - Final 12/06/24 17:55 Fluid - Synovial (joint) Body Fluid Culture - Final Staphylococcus aureus 12/06/24 17:55 Fluid - Synovial (joint) Anaerobic Culture - Final No anaerobic bacteria isolated. 12/06/24 18:46 Blood Culture (Wb) - Anticubital Left Bacteria Detection (PCR) - Final Staphylococcus aureus 12/06/24 18:46 Blood Culture (Wb) - Anticubital Left Blood Culture - Final Staphylococcus aureus 12/09/24 11:55 Blood Culture (Wb) - Left Hand Blood Culture - Preliminary No growth in 48 hours. 12/08/24 20:04 Blood Culture (Wb) - Left Hand Blood Culture - Preliminary No growth in 48 hours. 12/08/24 19:50 Blood Culture (Wb) - Left Hand Blood Culture - Preliminary No growth in 48 hours. Physical Exam Narrative General: Alert, no apparent distress HEENT: Atraumatic, normocephalic Eyes: extraocular movements grossly intact Neck: Supple Respiratory: normal respiratory effort Cardiovascular: no edema appreciated GI: nondistended Extremities: Right shoulder continues improving erythema and swelling Neuro: No overt focal neurological deficits Psych: Cooperative Assessment & Plan Assessment/Plan (1) Right shoulder pain: PLAN: Plan #Septic joint of right shoulder 2/2 MSSA and staph bacteremia -Patient with elevated white blood cell count and CRP of 177 and shoulder worsened over 4 days and was red and hot with pain with any movement -Status post washout 12/06/[address] Farias -Synovial fluid analysis with elevated white blood cell count that was neutrophil predominant -Preliminary cultures growing Staph aureus -Patient on Rocephin and vancomycin -ID consult placed -Pain control -PT/OT -12/08: Patient growing Staph aureus, sensitivities available. Patient narrowed to cefazolin and midline ordered by ID with cefazolin stop date 12/20/2024 and then outpatient he will have an additional 1 to 2 weeks of p.o. antibiotics. Will need to follow-up with infectious disease in 2 weeks. Patient now with blood culture positive preliminarily for gram-positive cocci in clusters. Could be coag negative staph/contaminant or could be Staph aureus. Will put in for repeat blood cultures and continue cefazolin. ID following. If it is Staph aureus may need echocardiogram. -12/09: Blood culture on admission growing Staph aureus, repeat blood cultures pending, echo ordered given staph bacteremia. Infectious disease managing antibiotics -12/10: Patient this a.m. complaining of some more swelling and pain so discussed with infectious disease who recommended reinitiating vancomycin and obtaining a CT. CT with moderate glenohumeral joint effusion and fluid communicating into the subacromial?subdeltoid bursa. Irregular peripheral enhancement of the synovium of the glenohumeral joint and subacromial?subdeltoid bursa. Unclear significance. Repeat blood cultures thus far negative. Ortho monitoring, no indication for repeat I&D at this time but this will continue to be assessed. -12/11: Repeat blood cultures no growth to date, patient remains on vancomycin, cefazolin. Being followed by infectious disease, Ortho primary and monitoring for any further need for intervention-> patient did have bedside aspiration today did not seem consistent with postop hemarthrosis and concomitant superficial cellulitis. Will continue antibiotics and monitoring clinically -12/12: White blood cell count normalized, afebrile, does seem to be slowly improving. Repeat blood cultures no growth to date, infectious disease managing antibiotics -12/13: Patient continues to improve, patient to be discharged on IV cefazolin and p.o. Doxy with stop date 01/05/2025 with weekly labs and ID follow-up in 2 weeks. Okay from hospitalist standpoint for discharge once deemed appropriate to do so per Ortho. If patient to be discharged on pain medication per primary would recommend patient also continue scheduled bowel regimen while on opioid pain medication # Hypertension -Patient has been persistently hypertensive, suspect partially due to pain but seems to be elevated consistently -Will add amlodipine -Has hydralazine as needed but will try to maximize oral agents minimize PRNs -12/10: Amlodipine added, will continue to monitor, suspect this is somewhat elevated by patient's pain as well -12/11: Blood pressure somewhat improved this a.m. to 129/86, continue current dose of amlodipine and can uptitrate as tolerated. Suspect blood pressure will improve his pain levels improved -12/12: Discussed with family yesterday and patient usually not hypertensive, suspect this is due to current situation, patient agreeable for amlodipine at this time but intends to monitor blood pressure outpatient -12/13: Can continue amlodipine on discharge, stable from hospitalist standpoint for discharge once okay to do so with Ortho and ID #[id number] ppx: SCDs Caryl Sanchez MD Charges/Coding Visit Charges Inpatient E&M: 01553 Subs Hosp L1
--- NOTE | 2024-12-13 15:30 | PCM.PN.ORT ---
Subjective Subjective POD 7 right shoulder I and D for SA Objective Data Objective Data Vital Signs: Vital Signs Temp Pulse Resp BP Pulse Ox O2 Del Method 98.3 F 94 16 144/84 H 97 Room Air 12/13/24 14:01 12/13/24 14:01 12/13/24 14:01 12/13/24 14:01 12/13/24 14:01 12/13/24 14:01 Oxygen Delivery Method Room Air Weight: 188 lb 4.396 oz Body Mass Index (BMI) 30.4 Intake & Output: Intake and Output for Last 24 Hours 12/11/24 12/12/24 12/13/24 23:59 23:59 23:59 Intake Total 1530 / 1530 1840 / 1840 1257.5 / 1257.5 Balance 1530 / 1530 1840 / 1840 1257.5 / 1257.5 Lab / Micro Data 12/13/24 05:35 12/13/24 05:35 Labs: Laboratory Results - last 24 hr 12/13/24 05:35: WBC 8.8, RBC 4.68, Hgb 12.7 L, Hct 37.0 L, MCV 79.1 L, MCH 27.1, MCHC 34.3, RDW Std Deviation 39.8, RDW Coeff of Betzaida 14.0, Plt Count 466 H, MPV 10.2, Immature Gran % (Auto) 1.000 H, Neut % (Auto) 69.0, Lymph % (Auto) 15.4 L, [place] % (Auto) 11.4 H, Eos % (Auto) 2.3, Baso % (Auto) 0.9, Absolute Neuts (auto) 6.1, Absolute Lymphs (auto) 1.35, Nucleated RBC % 0, Sodium 135 L, Potassium 4.1, Chloride 102, Carbon Dioxide 27.0, Anion Gap 6, BUN 14, Creatinine 0.93, Estim Creat Clear Calc 91.96, Est GFR (MDRD) Af Amer 108, Est GFR (MDRD) Non-Af 89, BUN/Creatinine Ratio 15.0, Glucose 110 H, Calcium 8.7 12/13/24 11:10: Vancomycin Trough 18.8 H Micro: Microbiology 12/06/24 17:55 Fluid - Synovial (joint) Gram Stain - Final 12/06/24 17:55 Fluid - Synovial (joint) Body Fluid Culture - Final Staphylococcus aureus 12/06/24 17:55 Fluid - Synovial (joint) Anaerobic Culture - Final No anaerobic bacteria isolated. 12/06/24 18:46 Blood Culture (Wb) - Anticubital Left Bacteria Detection (PCR) - Final Staphylococcus aureus 12/06/24 18:46 Blood Culture (Wb) - Anticubital Left Blood Culture - Final Staphylococcus aureus 12/09/24 11:55 Blood Culture (Wb) - Left Hand Blood Culture - Preliminary No growth in 48 hours. 12/08/24 20:04 Blood Culture (Wb) - Left Hand Blood Culture - Preliminary No growth in 48 hours. 12/08/24 19:50 Blood Culture (Wb) - Left Hand Blood Culture - Preliminary No growth in 48 hours. Assessment & Plan Assessment/Plan (1) Cellulitis: PLAN: 54-year-old man postop day 7. I read the hospitalist and the infectious disease consultation notes from today. The plan will be to send the patient home on IV Ancef and oral doxycycline. The patient is getting a PICC line right now. I talked to the dependency case manager the home IV infusion company will be set up for tomorrow evening they will have to get their first 2 doses of IV antibiotics in the morning so therefore I will round tomorrow and put in the discharge paperwork and plan tomorrow morning. I asked the patient's nurse to let the patient know the plan. (2) MSSA bacteremia: (3) Septic joint of right shoulder region: (4) Right shoulder pain:
[2024-12-13 20:14] VITALS: BP 131/91; PULSE 89; RESP 18; TEMP 37.1; O2SAT 97
[2024-12-14] MEDS: Vancomycin HCl 2,000 MG in 0.9% Normal Saline (500mL Bag) 500 ML 250 MG IV ×2 (00:20→12:05)
[2024-12-14] MEDS: 0.9% Saline Lock 10 ML Syringe IV ×4 (00:20→15:18)
[2024-12-14 02:56] VITALS: BP 156/92; PULSE 86; RESP 18; TEMP 37.2; O2SAT 98
[2024-12-14] MEDS: Acetaminophen 325 MG Tablet 650 MG PO ×3 (03:07→12:04)
[2024-12-14] MEDS: oxyCODONE 5 MG Tablet PO ×3 (03:07→12:04)
[2024-12-14] MEDS: Cefazolin 2 GM in Syringe IV ×2 (06:18→15:18)
[2024-12-14 06:38] LABS: Absolute Lymphocyte Count 1.15 X10^3/uL (0.83-4.51); Absolute Neutrophil Count 5.5 X10^3/uL (2.0-7.7); Basophil# 0.09 X10^3/uL; Basophil% 1.1 % (0-1); Eosinophil# 0.22 X10^3/uL; Eosinophils% 2.7 % (0-5); Hematocrit 36.4 % (40-54); Hemoglobin 12.6 g/dL (13.0-16.5); Lymphocyte # 1.15 X10^3/ul (0.83-4.51); Lymphocyte % 14.2 % (19-41); Mean Corp Hgb Conc 34.6 g/dL (32-36); Mean Corpuscular Hgb 27.4 pg (27.0-32.0); Mean Corpuscular Volume 79.1 fL (80-94); Mean Platelet Vol. 10.1 fl (6.2-12.0); Monocyte# 1.07 X10^3/uL; Monocyte% 13.2 % (0-10); NRBC Flagged by Analyzer 0 % (0-5); Neutrophil # 5.46 X10^3/uL (2.7-7.7); Neutrophil % 67.4 % (47-70); Platelet Count 506 K/mm3 (150-450); RBC Distribution Width CV 14.1 % (11.6-14.6); RBC Distribution Width SD 40.1 fl (35.1-43.9); White Blood Count 8.1 K/mm3 (4.4-11.0)
--- NOTE | 2024-12-14 07:35 | PCM.PN.ORT ---
Subjective Subjective feeling a bit better daily. less fevers. still painful shoulder, but again a bit better. Objective Data Objective Data Vital Signs: Vital Signs Temp Pulse Resp BP Pulse Ox O2 Del Method 98.9 F 86 18 156/92 H 98 Room Air 12/14/24 02:56 12/14/24 02:56 12/14/24 02:56 12/14/24 02:56 12/14/24 02:56 12/14/24 02:56 Oxygen Delivery Method Room Air Weight: 188 lb 4.396 oz Body Mass Index (BMI) 30.4 Intake & Output: Intake and Output for Last 24 Hours 12/12/24 12/13/24 12/14/24 23:59 23:59 23:59 Intake Total 1840 / 1840 1837.5 / 1837.5 1260 / 1260 Balance 1840 / 1840 1837.5 / 1837.5 1260 / 1260 Lab / Micro Data Attestation: I reviewed the patient's lab results. 12/14/24 05:44 12/13/24 05:35 Labs: Laboratory Results - last 24 hr 12/13/24 11:10: Vancomycin Trough 18.8 H 12/14/24 05:44: WBC 8.1, RBC 4.60, Hgb 12.6 L, Hct 36.4 L, MCV 79.1 L, MCH 27.4, MCHC 34.6, RDW Std Deviation 40.1, RDW Coeff of Betzaida 14.1, Plt Count 506 H, MPV 10.1, Immature Gran % (Auto) 1.400 H, Neut % (Auto) 67.4, Lymph % (Auto) 14.2 L, [place] % (Auto) 13.2 H, Eos % (Auto) 2.7, Baso % (Auto) 1.1 H, Absolute Neuts (auto) 5.5, Absolute Lymphs (auto) 1.15, Nucleated RBC % 0 Micro: Microbiology 12/08/24 19:50 Blood Culture (Wb) - Left Hand Blood Culture - Final No growth in 5 days. 12/08/24 20:04 Blood Culture (Wb) - Left Hand Blood Culture - Final No growth in 5 days. 12/06/24 17:55 Fluid - Synovial (joint) Gram Stain - Final 12/06/24 17:55 Fluid - Synovial (joint) Body Fluid Culture - Final Staphylococcus aureus 12/06/24 17:55 Fluid - Synovial (joint) Anaerobic Culture - Final No anaerobic bacteria isolated. 12/06/24 18:46 Blood Culture (Wb) - Anticubital Left Bacteria Detection (PCR) - Final Staphylococcus aureus 12/06/24 18:46 Blood Culture (Wb) - Anticubital Left Blood Culture - Final Staphylococcus aureus 12/09/24 11:55 Blood Culture (Wb) - Left Hand Blood Culture - Preliminary No growth in 48 hours. Physical Exam Const alert, oriented x3 and no apparent distress Extremity normal capillary refill Extremity Narrative: swelling mildly improved, less redness, still warm shoulder, painful to ROM beyond 15 FE and beyond 20 ER. hand warm well perfused. nvi. Assessment & Plan Assessment/Plan (1) Cellulitis: PLAN: 54 yr M pod 8. Doing better today. Agree with ID and hospitalist services, will plan for dc today. outpatient iv and po antibiotics. FU in the office in 1 week. the patient understands the plan. I stressed the importance of early FU if anything changes / more red flag symptoms. (2) MSSA bacteremia: (3) Septic joint of right shoulder region: (4) Right shoulder pain:
[2024-12-14 07:52] LABS: Anion Gap 6 (5-15); BUN 15 mg/dL (7-18); BUN/Creat Ratio 16.7 RATIO (10-20); Chloride 101 mmol/L (98-107); EST Glomerular Filtration Rate 93 mL/min (>60); Est Glom Filt Rate - Afr Amer 113 mL/min (>60); Estimated Creatinine Clearance 95.02 ml/min; Glucose 107 mg/dL (74-106); Potassium 4.2 mmol/L (3.5-5.1); Sodium Level 134 mmol/L (136-145)
[2024-12-14 09:36] VITALS: BP 144/101; PULSE 104; RESP 16; TEMP 36.6; O2SAT 100
[2024-12-14] MEDS: amLODIPine 5 MG Tablet PO (09:56)
[2024-12-14] MEDS: Senna Tablet 2 TABLET PO (09:56)
[2024-12-14] MEDS: Polyethylene Glycol 3350 17 GM PACKET PO (09:56)
--- NOTE | 2024-12-14 13:01 | PCM.DC.SUM ---
Providers Date of Admission: 12/06/24 Primary Care Physician: Dr. Terrence Diaz MD Consultations 12/06/24 18:18 Consult: Infectious Disease Routine Consulting Provider: Sincere Soni Reason for Consult: Septic joint EMERGENT Consult: No Notified: Yes Date Notified: 12/06/24 Time Notified: 18:18 Method of Notification: Text 12/06/24 18:34 Consult: Hospitalist Routine Consulting Provider: Fady Farias Reason for Consult: MEDICAL MANAGEMENT EMERGENT Consult: No Notified: Yes Date Notified: 12/06/24 Time Notified: 18:34 Method of Notification: Verbal Reason For Visit: Right septic shoulder joint Diagnosis Discharge Diagnosis (1) Cellulitis: Status: Acute Code(s): L03.90 - Cellulitis, unspecified Plan: 54 yr M pod 8. Doing better today. Agree with ID and hospitalist services, will plan for dc today. outpatient iv and po antibiotics. FU in the office in 1 week. the patient understands the plan. I stressed the importance of early FU if anything changes / more red flag symptoms. (2) MSSA bacteremia: Status: Acute Code(s): R78.81 - Bacteremia; B95.61 - Methicillin susceptible Staphylococcus aureus infection as the cause of diseases classified elsewhere (3) Septic joint of right shoulder region: Status: Acute Code(s): M00.9 - Pyogenic arthritis, unspecified (4) Right shoulder pain: Status: Acute Code(s): M25.511 - Pain in right shoulder Plan Follow up with Dr. Farias in 5 business days. Medications at Discharge Home Medications ketorolac 10 mg tablet 10 mg PO Q6 PRN pain 12/06/24 methylprednisolone 4 mg tablets in a dose pack mg PO 12/06/24 orphenadrine citrate 100 mg tablet,extended release 100 mg PO BID 12/06/24 cefazolin 2 gram intravenous solution 2 g IV Q8H 23 days 12/13/24 doxycycline hyclate 100 mg capsule 100 mg PO BID #50 caps 12/13/24 oxycodone-acetaminophen 5 mg-325 mg tablet (Endocet) 1 - 2 tab PO Q4H PRN pain 5 days #30 tabs 12/14/24 Hospital Course Operations arthroscopy, shoulder (I and D) and - (right shoulder aspiration x 2) Summary of Care Provided Minutes Spent on Discharge: 15 Hospital Course: 8 days of inpatient IV antibiotics. no complications. CT showed fluid but repeat aspiration negative, and patient improved sufficiently to be sent home on IV and po antibiotics. Physical Exam Narrative less redness and warmth, less pain today - see progress note for further informaiton Const oriented x3 and no apparent distress Weight / BMI Weight Weight: 188 lb 4.396 oz Body Mass Index (BMI) 30.4 ABG / Lab / Microbiology Data Attestation: I reviewed the patient's lab results. 12/14/24 05:44 12/14/24 05:44 Laboratory: Laboratory Results - last 24 hr 12/14/24 05:44: WBC 8.1, RBC 4.60, Hgb 12.6 L, Hct 36.4 L, MCV 79.1 L, MCH 27.4, MCHC 34.6, RDW Std Deviation 40.1, RDW Coeff of Betzaida 14.1, Plt Count 506 H, MPV 10.1, Immature Gran % (Auto) 1.400 H, Neut % (Auto) 67.4, Lymph % (Auto) 14.2 L, [place] % (Auto) 13.2 H, Eos % (Auto) 2.7, Baso % (Auto) 1.1 H, Absolute Neuts (auto) 5.5, Absolute Lymphs (auto) 1.15, Nucleated RBC % 0, Sodium 134 L, Potassium 4.2, Chloride 101, Carbon Dioxide 27.0, Anion Gap 6, BUN 15, Creatinine 0.90, Estim Creat Clear Calc 95.02, Est GFR (MDRD) Af Amer 113, Est GFR (MDRD) Non-Af 93, BUN/Creatinine Ratio 16.7, Glucose 107 H, Calcium 9.0 Microbiology: Microbiology 12/08/24 19:50 Blood Culture (Wb) - Left Hand Blood Culture - Final No growth in 5 days. 12/08/24 20:04 Blood Culture (Wb) - Left Hand Blood Culture - Final No growth in 5 days. 12/06/24 17:55 Fluid - Synovial (joint) Gram Stain - Final 12/06/24 17:55 Fluid - Synovial (joint) Body Fluid Culture - Final Staphylococcus aureus 12/06/24 17:55 Fluid - Synovial (joint) Anaerobic Culture - Final No anaerobic bacteria isolated. 12/06/24 18:46 Blood Culture (Wb) - Anticubital Left Bacteria Detection (PCR) - Final Staphylococcus aureus 12/06/24 18:46 Blood Culture (Wb) - Anticubital Left Blood Culture - Final Staphylococcus aureus 12/09/24 11:55 Blood Culture (Wb) - Left Hand Blood Culture - Preliminary No growth in 48 hours. Radiography Diagnostic Testing: CT shoulder moderate effusion and synovitis D/C Instructions Discharge Diet: No restrictions Discharge Activity: Return to Normal Activity Ice area for (Minutes): 10 Weight Bearing Status: Weight bearing as tolerated Lifting Restricted to (Lbs): 5 Keep extremity elevated above heart level: Operative Extremity Call your doctor if your incision/area has: Continuous Slow Oozing, Sudden Increased Bleeding, Increased Pain/ Swelling, Increased Redness, Foul Smelling Discharge and Swelling at the incision site Call your doctor if you observe: Fever of 101 or Higher, Coldness, Increased Pain, Numbness or Tingling and Change in Color Cleanse incision/area with: Soap & Water DC O2, CPAP, BIPAP Needs Home O2 Discharge instructions: No Additional Instructions: IV antibiotics ancef q8 and oral antibiotics as prescribed . Please Follow Up With: Fady Farias MD When: 5 business days, (and Dr. Parrish 2 weeks) Meaningful Use Info Meaningful Use Meaningful Use Diagnoses (Choose all that apply): None applicable Ischemic Stroke Statin Dosing Therapy Reference: STATIN DOSE THERAPY REFERENCE: * Patients > 75 years receive moderate or high dose statin therapy. * Patients 75 years or YOUNGER should receive HIGH intensity statin dose unless contraindicated. You will be required to document reason for non-treatment if statin daily dose does not meet guidelines. HIGH DOSE STATIN THERAPY DAILY Atorvastatin > than or = to 40 mg Rosuvastatin > than or = to 20 mg Amlodipine + Atorvastatin > than or = to 2.5/40 mg Ezetimibe + Simvastatin 10/80 mg Simvastatin 80mg Discharge Plan Admission Admit Date/Time: 12/06/24 18:19 Primary Reason for Your Visit: R septic shoulder joint Attending Provider: Fady Farias Primary Care Provider: Terrence Diaz Consulting Providers: Sincere Soni; Fady Farias; Avi Stevens Instructions Patient Instructions: Infection Preventing Spread Discharge Orders/Prescriptions Prescriptions: New cefazolin 2 gram recon soln 2 g IV Q8H 23 Days Rx Instructions: stop date 01/05/25. dx: mssa septic arthritis. Weekly bmp, cbc, and esr. Fax to [phone]. Routine picc care per protocol. doxycycline hyclate 100 mg capsule 100 mg PO BID Qty: 50 0RF oxycodone-acetaminophen [Endocet] 5-325 mg tablet 1 - 2 tab PO Q4H MDD 6 PRN (Reason: pain) 5 Days Qty: 30 0RF No Action methylprednisolone 4 mg tablets,dose pack PO ketorolac 10 mg tablet 10 mg PO Q6 PRN (Reason: pain) orphenadrine citrate 100 mg tablet extended release 100 mg PO BID Referrals / Follow Up: Terrence Diaz MD [Primary Care Provider] - Fady Farias MD [Med Staff - Active Staff] - Disposition Disposition (needs filled in before D/C Order can be placed): Home, Self Care
--- NOTE | 2024-12-14 13:56 | CASEMGMT ---
Addendum entered by Christine Fournier 12/14/24 14:12: Spoke to , he would like home OT if pt qualifies. Order added and sent to [facility]. Pt updated on this and is aware that his antibiotic end date is 01/05/25. Pt denies further needs. Original Note: DC Summary sent to [facility] and [facility] via [employer] at this time. RN CM into pt room, pt aware of plans and that this RN CM will speak to to see if he would like OT at home. Pt asks for stop date on antibiotics. RN CM to check and notify pt.
[2024-12-14 14:21] VITALS: BP 146/95; PULSE 112; RESP 18; TEMP 37.1; O2SAT 100
== END 2024-12-14 15:45 | disposition home or self-care (01) | DRG 501 ==
LOC: MS3 21:04
PROVIDERS: Family Medicine; Internal Medicine; Internal Medicine Infectious Disease; Admitting Provider Orthopaedic Surgery Sports Medicine; PCP Family Medicine; Referring Provider Orthopaedic Surgery Sports Medicine; Visit Provider Orthopaedic Surgery Sports Medicine
PROC: 0MB14ZZ Excision of Right Shoulder Bursa and Ligament, Percutaneous Endoscopic Approach (ICD-10-PCS; CPT 29805; principal; 2024-12-06 16:40)
DX: M00.011 Staphylococcal arthritis, right shoulder (principal); R78.81 Bacteremia; L03.113 Cellulitis of right upper limb; I10 Essential (primary) hypertension; E66.9 Obesity, unspecified; M65.811 Other synovitis and tenosynovitis, right shoulder; M25.511 Pain in right shoulder; M25.411 Effusion, right shoulder; M19.011 Primary osteoarthritis, right shoulder; K59.00 Constipation, unspecified; Z79.52 Long term (current) use of systemic steroids; R53.81 Other malaise; B95.7 Other staphylococcus as the cause of diseases classified elsewhere; B96.89 Other specified bacterial agents as the cause of diseases classified elsewhere; B95.61 Methicillin susceptible Staphylococcus aureus infection as the cause of diseases classified elsewhere; M65.911 Unspecified synovitis and tenosynovitis, right shoulder; Z68.30 Body mass index [BMI] 30.0-30.9, adult; Z88.1 Allergy status to other antibiotic agents; G89.18 Other acute postprocedural pain
CPT/HCPCS: 36415; 36569; 73201; 80048; 80053; 80202; 82945; 84157; 85025; 85652; 86140; 87040; 87070; 87075; 87077; 87149; 87186; 87205; 89050; 89051; 89060; 93306; 97110; 97161; 97166; 97530; Q9967; A4216; J0696; J2405

== ENCOUNTER 2025-02-14 17:30 | Outpatient (RCR) | payer BC, SELFPAY ==
--- NOTE | 2025-01-20 19:02 | HP.PTEVAL ---
Patient's Visit Information Visit Information Visit Information: JONATHAN SABA is a 54 year old M referred to Physical Therapy by Dr. Fady Farias MD with a diagnosis of R shoulder pyogenic OA. Date of Evaluation: 01/20/25 Physical Therapist: Jose Heaton, PT, ATC Visit Plan Frequency: 2-3x /Week Duration: 4-6 Weeks Plan: Focus on R shoulder AROM, PROM, and mobs. May introduce rotator cuff strengthening and scap stab in a couple weeks if appropriate. Subjective Subjective: Pt reports he had a staph infection in his R shoulder which has caused his shoulder to freeze. Pt reports he has torn multiple tendons in his R shoulder as well. pt notes he is here today in order to work on ROM at this time. 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 Pt notes he has had his R shoulder flushed in an attempt to get all the infection out. Pt has been cleared by infectious disease about a week ago. Pt is R hand dominant. Pt reports he has some minor intermittent tingling and numbness in R UE. Pt reports sleep difficulty at this time secondary to pain. Pt reports his goal is to get ROM and strength back so he can move on to getting his tendons repaired. 1/10 pain in the R shoulder while sitting here at rest, 3/10 pain at worst Pain R shoulder: Pain Intensity (Out of 10): 1 Pain Intensity Range: 3 Objective Objective: Neuro: B UE sensation is WNL to light touch. B bicipital reflex= 1/3 Palpation: Pt is tender throughout the LHB tendon. No obvious deformity noted at this time. AROM: L shoulder flex= 160, abd= 170, ER= 40, IR= WNL; R shoulder flex= 30, abd= 20, IR= severely limited, ER= 25 degrees MMT: L shoulder flex= 17, abd= 21, ER= 16, IR= 16 #F; R shoulder Not tested Goals Goal 1:: Decrease R shoulder pain x 50% to aid with sleep Goal Time Frame: 4-6 Weeks Goal 2:: Increase R shoulder AROM x 50 degrees to aid with overhead activity Goal Time Frame: 4-6 Weeks Goal 3:: Increase R shoulder strength to equal L shoulder strength x 80% to aid with work requirements Goal Time Frame: 4-6 Weeks Goal 4:: I with HEP Goal Time Frame: 4-6 Weeks Rehabilitation Potential Physical Therapy Diagnosis: Pt has R shoulder pain, weakness, and limited ROM secondary to R shoulder [id number] Rehabilitation Potential: Good Anticipated Interventions Patient/Client Instruction: Educate patient on: Condition and Plan of Care For the Purpose of:: To improve self management Therapeutic Exercise to Include: Strength training, Endurance training, Body mechanics, Flexibilty training, Passive ROM, Active ROM and Scapular Strength/Stabilization For the Purpose of:: To decrease pain, To increase ROM, To improve muscle performance and motor function and To improve ability to perform ADL's Cryotherapy (ice pack, ice massage): Yes For the Purpose of:: To decrease pain Text: Thank you for the opportunity to evaluate your patient. For Medicare and Medicare HMO plans, please review the plan of care and approve it. It will need to be FAXED BACK to us at [phone] for Medicare purposes. For Medicare only, by signing this I certify the plan of care. Please let me know if there are questions or concerns regarding this plan of care. Physician Signature: Date:
--- NOTE | 2025-02-14 17:52 | HP.PTDCSUM ---
Discharge Summary D/C summary: It has been my pleasure to treat JONATHAN SABA referred by Dr. Fady Farias MD, with the diagnosis of R shoulder pyogenic OA for a total of 6 visit(s). Discharge Date: Please see the following information for a summary of their discharge status. Subjective Subjective: Very minld pain today Pain R shoulder: Pain Intensity (Out of 10): 1 Objective Objective/Function: R shoulder MMT: flex= 8, abd= 10, ER= 8, IR= 26 #F R shoulder ROM: flex= 40, abd= 40, ER= 40, IR= moderately limited R shoulder pain ranges from 1-4/10 Pt is I with HEP Goals Goal 1:: Decrease R shoulder pain x 50% to aid with sleep Goal Progress: Goal Met Goal 2:: Increase R shoulder AROM x 50 degrees to aid with overhead activity Goal Progress: Not Progressing Goal 3:: Increase R shoulder strength to equal L shoulder strength x 80% to aid with work requirements Goal Progress: Not Progressing Goal 4:: I with HEP Goal Progress: Goal Met Plan Plan: Discontinue. RTD D/C Information d/c sentence: If there are questions or concerns regarding this patient's physical therapy, please feel free to call me at [phone]. Thank you for the referral of this patient. Sincerely, Jose Heaton, PT, ATC
== END 2025-02-14 19:00 | disposition home or self-care (01) ==
LOC: PT 17:30
PROVIDERS: PCP Family Medicine; Referring Provider Orthopaedic Surgery Sports Medicine; Visit Provider Orthopaedic Surgery Sports Medicine
DX: L03.90 Cellulitis, unspecified (principal); R78.81 Bacteremia; B95.61 Methicillin susceptible Staphylococcus aureus infection as the cause of diseases classified elsewhere; M00.9 Pyogenic arthritis, unspecified
CPT/HCPCS: 97110; 97161; 97530

== ENCOUNTER → 2025-04-13 | Outpatient (CLI) | payer BC, SELFPAY ==
--- NOTE | 2025-04-13 12:51 | MRI_ITS ---
PROCEDURE: UPPER EXT JOINT ONLY(ROUTINE) 04/13/2025 REASON FOR EXAM: WEAKNESS, EVAL CUFF TEAR. Injury 5 years ago. Decreased range of motion. Increasing pain TECHNIQUE: MRI of the right shoulder without contrast. Multiplanar and multisequence images were obtained without IV contrast administration. COMPARISON: COMPARISON : None provided. FINDINGS: Bone and bone Marrow: A Hill-Sachs deformity is seen in the posterior right humeral head, with significant cortical irregularity, some areas adjacent bone marrow edema. No acute glenoid abnormality is seen. Advanced degenerative changes are seen of the right acromioclavicular joint, with marked joint narrowing and osseous reactive changes. Mild glenohumeral joint degenerative changes are seen. A severe chronic tear of the supraspinatus tendon is seen, with severe retraction. Severe chronic tear of the infraspinatus tendon is seen, as well. The teres minor tendon subscapularis tendon appear intact. A tear of the posterior and superior glenoid labrum is noted. Effusion: No significant joint effusion is seen Soft Tissues: No soft tissue mass is seen. No free or loculated fluid collection is noted. MRI/Upper Ext Joint Only(Routine) IMPRESSION: 1. Hill-Sachs deformity. 2. Severe chronic tears of the supraspinatus and infraspinatus tendons. 3. Glenoid labral tear involving the posterior and superior glenoid labrum. 4. Advanced degenerative changes of the right acromioclavicular joint. 5. Mild glenohumeral joint degenerative changes. Reading Location: [place] [id number]
== END | disposition home or self-care (01) ==
PROVIDERS: PCP Family Medicine; Referring Provider Orthopaedic Surgery Sports Medicine; Visit Provider Orthopaedic Surgery Sports Medicine
DX: R53.1 Weakness (principal)
CPT/HCPCS: 73221